=== PATIENT | female | born 1980 | race Caucasian/White ===

== ENCOUNTER 2018-02-07 14:15 | Emergency (ER) | payer SELFPAY ==
[~2018-02-07] VITALS: Ht 162.6 cm; Wt 78.9 kg
[~2018-02-07 14:15] MED LIST: DOXY100T2 PO; PANT40SU PO; RT-ALBUINH IH
--- NOTE | 2018-02-07 14:35 | ED Integumentary General ---
General Stated Complaint: ABSCESS UNDER LEFT ARM Source: patient Exam Limitations: no limitations History of Present Illness Date Seen by Provider: Feb 07, 2018 Time Seen by Provider: 14:29 Initial Comments Patient to the emergency room with complaints of abscess under left axilla. She reports that the redness and pain started 2 days ago and she squeezed on expressing purulent drainage. Denies any fevers Timing/Duration: yesterday Location: none Possible Cause: no cause identified Associated Symptoms: denies symptoms; No fever Allergies and Home Medications Allergies Coded Allergies: codeine (Verified Allergy, Unknown, 07/25/15) Home Medications Albuterol Sulfate 8.5 Gm Hfa.aer.ad, 1-2 PUFF IH PRN, (Reported) Doxycycline Hyclate 100 Mg Tablet, 100 MG PO BID Prescribed by: MAR PAK on 04/18/16 1659 Pantoprazole Sodium 40 Mg , 40 MG PO DAILY Prescribed by: RICHARD LOPEZ on 07/25/15 1733 Patient Home Medication List Home Medication List Reviewed: Yes Constitutional: see HPI; No chills, No fever EENTM: see HPI; No hearing loss, No ear pain Respiratory: see HPI; No cough, No short of breath, No wheezing Cardiovascular: see HPI; No chest pain Gastrointestinal: see HPI; No abdominal pain Genitourinary: see HPI; No dysuria, No hematuria Musculoskeletal: see HPI; No back pain Skin: see HPI, lesions Psychiatric/Neurological: See HPI; Denies Depressed Endocrine: See HPI; Denies Flushing Hematologic/Lymphatic: See HPI; Denies Blood Clots All Other Systems Reviewed Negative Unless Noted: Yes Past Gmexval-Shnyfq-Ointuj Hx Past Med/Social Hx: Reviewed Nursing Past Med/Soc Hx Patient Social History Recent Foreign Travel: No Contact w/Someone Who Travel: No Recent Hopitalizations: No Past Medical History Asthma Traumatic Brain Injury Reproductive Disorders: No Scoliosis Family Medical History Reviewed Nursing Family Hx Heart Disease, Cancer, Diabetes Physical Exam Vital Signs Vital Signs - First Documented 02/07/18 14:25 Temp 97.7 Pulse 80 Resp 18 B/P (MAP) 119/83 (95) Pulse Ox 97 Capillary Refill : General Appearance: WD/WN, no apparent distress HEENT: TMs normal, pharynx normal Neck: full range of motion, supple, normal inspection Cardiovascular: regular rate, rhythm, no edema, no gallop, no JVD, no murmur Respiratory: chest non-tender, lungs clear Gastrointestinal: normal bowel sounds, non tender Back: normal inspection, no CVA tenderness Extremities: normal range of motion, non-tender Neurologic/Psychiatric: alert, normal mood/affect, oriented x 3 Skin: normal color, warm/dry, other (abscess to the left axilla. area is indurated but there is no area that could be drained. The patient has squeezed and expressed purulent drainage prior to arrival.) Skin Problem Location: generalized, other (left axilla) Skin Problem Character: abscess Lymphatic: no adenopathy Progress/Results/Core Measures Results/Orders Vital Signs/I&O 02/07/18 14:25 Temp 97.7 Pulse 80 Resp 18 B/P (MAP) 119/83 (95) Pulse Ox 97 Departure Impression Primary Impression: Abscess of axilla, left Disposition: 01 HOME, SELF-CARE Condition: Stable/Unchanged Departure-Patient Inst. Decision time for Depature: 14:34 Referrals: MILES MURO DO (PCP/Family) Primary Care Physician Patient Instructions: ABSCESS Add. Discharge Instructions: Take medication as directed. Continue to use the warm compresses to aid with drainage. Return back to the emergency room for increased pain, fevers, redness or streaking or any other concerns as needed. Follow-up with your doctor within 1 week for recheck call today for appointment time. Scripts Sulfamethoxazole/Trimethoprim (Bactrim Ds Tablet) 1 Each Tablet 1 EACH PO BID, #14 TAB Prov: RICHARD LOPEZ APRN 02/07/18 RICHARD LOPEZ APRN Feb 07, 2018 14:34
[2018-02-07] MEDS ORDERED: SULF1TAB35 PO ×2 (14:38→14:52)
[2018-02-07 14:59] VITALS: BP 119/83
== END 2018-02-07 15:02 | disposition home or self-care (01) ==
LOC: EDUNIT# 14:15 → ER 14:19
DX: L02.412 Cutaneous abscess of left axilla (principal); J45.909 Unspecified asthma, uncomplicated; Z87.828 Personal history of other (healed) physical injury and trauma; Z87.39 Personal history of other diseases of the musculoskeletal system and connective tissue; Z88.5 Allergy status to narcotic agent
CPT/HCPCS: 99282

== ENCOUNTER 2019-05-06 08:13 | Emergency (ER) | payer SELFPAY ==
[~2019-05-06] VITALS: Ht 165 cm; Wt 73.9 kg
[~2019-05-06 08:13] MED LIST changes: +SULF1TAB35 PO
[2019-05-06] MEDS ORDERED: LACTATED RINGERS 1,000 ML IV ONE (08:49)
[2019-05-06] MEDS ORDERED: ONDANSETRON 4 MG/2 ML (SDV) Z0FRAN IVP ONE (09:00)
[2019-05-06 09:27] LABS: BILIRUBIN,URINE 1+ (NEGATIVE); CLARITY,URINE VERY CLOUDY; COLOR,URINE YELLOW; GLUCOSE, URINE (UA) NEGATIVE (NEGATIVE); KETONES,URINE NEGATIVE (NEGATIVE); LEUKOCYTE ESTERASE ,URINE 2+ (NEGATIVE); NITRITE,URINE POSITIVE (NEGATIVE); PH,URINE 5 (5-9); PROTEIN,URINE 2+ (NEGATIVE); UROBILINOGEN,URINE 1 MG/DL (NORMAL)
[2019-05-06 09:37] LABS: CALCIUM OXALATE CRYSTALS,UR LARGE /LPF
[2019-05-06 09:38] LABS: BACTERIA,URINE LARGE /HPF; SQUAMOUS EPITHELIAL CELL,UR 25-50 /HPF
[2019-05-06 09:42] LABS: AMPHETAMINE SCREEN, URINE NEGATIVE (NEGATIVE); BARBITURATE SCREEN URINE NEGATIVE (NEGATIVE); BENZODIAZEPINES SCREEN URINE NEGATIVE (NEGATIVE); CANNABINOID SCREEN, URINE POSITIVE (NEGATIVE); COCAINE SCREEN URINE NEGATIVE (NEGATIVE); METHADONE STAT NEGATIVE (NEGATIVE); METHAMPHETAMINE SCREEN URINE S NEGATIVE (NEGATIVE); OPIATE SCREEN URINE NEGATIVE (NEGATIVE); OXYCODONE STAT NEGATIVE (NEGATIVE); PROPOXYPHENE STAT NEGATIVE (NEGATIVE); TRICYCLIC ANTIDEPRESSANTS SCRE NEGATIVE (NEGATIVE)
[2019-05-06 10:00] LABS: BASOPHILS % (AUTO) 0 % (0-10); EOSINOPHILS # (AUTO) 0.1 10^3/uL (0.0-0.3); EOSINOPHILS % (AUTO) 2 % (0-10); HEMATOCRIT 41 % (35-52); HEMOGLOBIN 13.7 G/DL (11.5-16.0); LYMPHOCYTES # (AUTO) 1.9 X 10^3 (1.0-4.0); LYMPHOCYTES % (AUTO) 22 % (12-44); MEAN CORPUSCULAR HEMOGLOBIN 30 PG (25-34); MEAN CORPUSCULAR HGB CONC 33 G/DL (32-36); MEAN CORPUSCULAR VOLUME 90 FL (80-99); MEAN PLATELET VOLUME 10.5 FL (7.4-10.4); MONOCYTES # (AUTO) 0.8 X 10^3 (0.0-1.0); MONOCYTES % (AUTO) 9 % (0-12); NEUTROPHILS # (AUTO) 5.9 X 10^3 (1.8-7.8); NEUTROPHILS % (AUTO) 67 % (42-75); PLATELET COUNT 261 10^3/uL (130-400); RED CELL DISTRIBUTION WIDTH 13.2 % (10.0-14.5); WHITE BLOOD COUNT 8.8 10^3/uL (4.3-11.0)
[2019-05-06 10:21] LABS: ALANINE AMINOTRANSFERASE 16 U/L (0-55); ALBUMIN 4.1 GM/DL (3.2-4.5); ALKALINE PHOSPHATASE 84 U/L (40-136); AMYLASE 18 U/L (25-125); BILIRUBIN,TOTAL 0.4 MG/DL (0.1-1.0); BUN/CREATININE RATIO 15; CALCIUM 8.9 MG/DL (8.5-10.1); CARBON DIOXIDE 21 MMOL/L (21-32); CHLORIDE 108 MMOL/L (98-107); CREATININE SERUM 0.81 MG/DL (0.60-1.30); GFR ESTIMATED > 60; GLUCOSE 78 MG/DL (70-105); LIPASE 21 U/L (8-78); POTASSIUM 3.6 MMOL/L (3.6-5.0); SODIUM 137 MMOL/L (135-145)
[2019-05-06] MEDS ORDERED: CATHETER FLUSH 10 ML SYR IV PRN (10:30)
[2019-05-06] MEDS ORDERED: NS 100 ML (IVPB) BAG IV ONE (10:30)
[2019-05-06] MEDS ORDERED: IOHEXOL 350 MG/ML 100 ML (OMNIPAQUE 350) VIAL IV ONE (10:30)
[2019-05-06] MEDS ORDERED: HOLD METFORMIN - RECEIVED CONTRAST 20 ML VIAL IV SCH (10:30)
--- NOTE | 2019-05-06 11:03 | NUR ---
received RN report from jessica at this time.
[2019-05-06] MEDS ORDERED: cefTRIAXone FOR IV USE 1,000 MG in WATER (STERILE) FOR INJECTION 10 ML IV ONE (11:15)
--- NOTE | 2019-05-06 11:43 | Diagnostic Imaging Report ---
PROCEDURE: CT abdomen and pelvis with contrast, rule out appendicitis. TECHNIQUE: Multiple contiguous axial images were obtained through the abdomen and pelvis after the administration of intravenous contrast. INDICATION: Appendicitis. FINDINGS: No comparison available. Limited views of lower thorax reveal mild atelectasis dependently. There is a small cyst or hemangioma in hepatic segment , too small to fully characterize. Liver is otherwise normal. Gallbladder is normal. No biliary ductal dilation. Portal vein is patent. Pancreas, spleen and adrenal glands are normal. Kidneys enhance symmetrically without focal lesion. No hydronephrosis. Urinary bladder is normal. Uterus and adnexa are normal for age. There are no dilated loops of large or small bowel. The appendix is normal. No free fluid or air. No abdominal or pelvic lymphadenopathy. Abdominal aorta is normal in caliber. There are no suspicious osseous lesions. IMPRESSION: 1. No acute abnormality in the abdomen or pelvis, normal appendix. Dictated by: Dictated on workstation # [id number]
--- NOTE | 2019-05-06 11:48 | Diagnostic Imaging Report ---
EXAMINATION: Abdominal series and chest radiograph HISTORY: Belching and diarrhea. FINDINGS: Comparison is to a CT from same day. Lungs are clear without edema or pneumonia. No pleural effusion or pneumothorax. Heart size is normal. Bowel gas pattern is normal. No free air is seen. Excreted contrast is present in the kidneys and urinary bladder. IMPRESSION: 1. Clear lungs. 2. Normal bowel gas pattern. Dictated by: Dictated on workstation # [id number]
[2019-05-06] MEDS ORDERED: ONDA4TAB11 PO (11:58)
[2019-05-06] MEDS ORDERED: CIPR-225 PO (11:58)
[2019-05-06] MEDS ORDERED: LACT1CAP8 PO (11:58)
[2019-05-06] MEDS ORDERED: HYOS0.1283 SL (11:58)
[2019-05-06 11:59] VITALS: BP 110/78
--- NOTE | 2019-05-06 11:59 | ED Abdominal Pain ---
General Chief Complaint: Abdominal/GI Problems Stated Complaint: DIARRHEA Nursing Triage Note: PMH OF H PYL[facility]I STARTED WITH BELCHING AND DIARRHEA YESTERDAY. Sepsis Screen: No Definite Risk Source of Information: Patient History of Present Illness Date Seen by Provider: May 06, 2019 Time Seen by Provider: 08:40 Initial Comments PT ARRIVES VIA POV FROM HOME STATES THAT SHE BEGAN HAVING A FEVER AND DIARRHEA 5 DAYS AGO LAST TIME SHE WAS AWARE OF FEVER WAS 3 DAYS AGO AND WAS 101 AT THAT TIME DIARRHEA GOT BETTER, BUT THEN STARTED AGAIN LAST NIGHT--STATES SHE HAS HAD >10 <20 STOOLS SINCE LAST PM. NO BLACK/BLOODY/TARRY STOOLS C/O NAUSEA, NO VOMITING, STATES SHE HAS BEEN "BELCHING SULFA" STATES SHE HASN'T BEEN EATING RIGHT FOR THE LAST FEW DAYS DUE TO SYMPTOMS C/O EPIGASTRIC PAIN STATES "I GET IT ALOT-I HAVE H.PYLORI" NO KNOWN SICK CONTACTS OR SUSPICIOUS FOODS PCP: NONE Allergies and Home Medications Allergies Coded Allergies: codeine (Verified Allergy, Unknown, 07/25/15) Home Medications Albuterol Sulfate 8.5 Gm Hfa.aer.ad, 1-2 PUFF IH PRN, (Reported) Ciprofloxacin HCl 500 Mg Tablet, 500 MG PO BID Prescribed by: CARI MCFARLAND on 05/06/19 1158 Doxycycline Hyclate 100 Mg Tablet, 100 MG PO BID Prescribed by: MAR PAK on 04/18/16 1659 Hyoscyamine Sulfate 0.125 Mg Tab.subl, 1-2 TAB SL Q4H Prescribed by: CARI MCFARLAND on 05/06/19 1158 Lactobacillus Acidophilus 1 Each Capsule, 2 EACH PO QID Prescribed by: CARI MCFARLAND on 05/06/19 1158 Ondansetron 4 Mg Tab.rapdis, 4 MG PO Q4H Prescribed by: CARI MCFARLAND on 05/06/19 1158 Pantoprazole Sodium 40 Mg Granpkt.dr, 40 MG PO DAILY Prescribed by: RICHARD LOPEZ on 07/25/15 1733 Sulfamethoxazole/Trimethoprim 1 Each Tablet, 1 EACH PO BID Prescribed by: RICHARD LOPEZ on 02/07/18 2236 Sulfamethoxazole/Trimethoprim 1 Each Tablet, 1 EACH PO BID Prescribed by: RICHARD LOPEZ on 02/10/18 1024 Sulfamethoxazole/Trimethoprim 1 Each Tablet, 1 EACH PO BID Prescribed by: RICHARD LOPEZ on 02/07/18 8422 Patient Home Medication List Home Medication List Reviewed: Yes Review of Systems Review of Systems Constitutional: see HPI, fever Respiratory: No Symptoms Reported Cardiovascular: No Symptoms Reported Gastrointestinal: See HPI, Abdominal Pain, Diarrhea, Nausea, Poor Appetite; Denies Vomiting Genitourinary: No Symptoms Reported Musculoskeletal: no symptoms reported Skin: no symptoms reported Psychiatric/Neurological: No Symptoms Reported Endocrine: No Symptoms Reported Hematologic/Lymphatic: No Symptoms Reported Past Acifvgo-Xprizr-Ayfwlw Hx Past Med/Social Hx: Reviewed and Corrections made Patient Social History Alcohol Use: Rarely Uses Recreational Drug Use: No Smoking Status: Current Everyday Smoker (1 PPD) Type Used: Cigarettes 2nd Hand Smoke Exposure: Yes Recent Foreign Travel: No Contact w/Someone Who Travel: No Recent Infectious Disease Expo: No Recent Hopitalizations: No Past Medical History Surgeries: Yes (LEEP) Respiratory: Yes (tobaccoism) Asthma Cardiac: No Neurological: Yes Concussion Reproductive Disorders: Yes (CERVICAL DYSPLASIA--S/P LEEP) Gastrointestinal: Yes (GASTRITIS; H.PYLORI, PER PT) Musculoskeletal: Yes Scoliosis Endocrine: No HEENT: No Cancer: No Psychosocial: No Integumentary: No Blood Disorders: No Family Medical History Heart Disease, Cancer, Diabetes Physical Exam Vital Signs Vital Signs - First Documented 05/06/19 08:18 Temp 35.7 Pulse 63 Resp 18 B/P (MAP) 112/73 (86) Pulse Ox 98 O2 Delivery Room Air Capillary Refill : Less Than 3 Seconds Height/Weight/BMI Height: 5'4.00" Weight: 174lbs. 0oz. [id number]; 27.00 BMI Method:Stated General Appearance: WD/WN, no apparent distress HEENT: PERRL/EOMI, normal ENT inspection, other (POOR DENTITION) Respiratory: normal breath sounds, no respiratory distress, no accessory muscle use Cardiovascular: regular rate, rhythm, no murmur Gastrointestinal: normal bowel sounds, soft, no organomegaly, no pulsatile mass; No distended, No guarding, No rebound; tenderness (EPIGASTRIC); No hernia, No mass Extremities: normal inspection Back: normal inspection, CVA tenderness (R) Neurologic/Psychiatric: motor boss II-XII nml as tested, no motor/sensory deficits, alert, normal mood/affect, oriented x 3 Skin: normal color, warm/dry Progress/Results/Core Measures Results/Orders Lab Results Laboratory Tests Test 05/06/19 09:20 05/06/19 09:28 Range/Units Urine Color YELLOW Urine Clarity VERY CLOUDY H Urine pH 5 5-9 Urine Specific Solomon 1.025 H 1.016-1.022 Urine Protein 2+ H NEGATIVE Urine Glucose (UA) NEGATIVE NEGATIVE Urine Ketones NEGATIVE NEGATIVE Urine Nitrite POSITIVE H NEGATIVE Urine Bilirubin 1+ H NEGATIVE Urine Urobilinogen 1 NORMAL MG/DL Urine Leukocyte Esterase 2+ H NEGATIVE Urine RBC (Auto) 5+ H NEGATIVE Urine RBC NONE /HPF Urine WBC 5-10 H /HPF Urine Squamous Epithelial Cells 25-50 H /HPF Urine Crystals PRESENT H /LPF Urine Calcium Oxalate Crystals LARGE H /LPF Urine Bacteria LARGE H /HPF Urine Casts NONE /LPF Urine Mucus NEGATIVE /LPF Urine Culture Indicated YES Urine Opiates Screen NEGATIVE NEGATIVE Urine Oxycodone Screen NEGATIVE NEGATIVE Urine Methadone Screen NEGATIVE NEGATIVE Urine Propoxyphene Screen NEGATIVE NEGATIVE Urine Barbiturates Screen NEGATIVE NEGATIVE Ur Tricyclic Antidepressants Screen NEGATIVE NEGATIVE Urine Phencyclidine Screen NEGATIVE NEGATIVE Urine Amphetamines Screen NEGATIVE NEGATIVE Urine Methamphetamines Screen NEGATIVE NEGATIVE Urine Benzodiazepines Screen NEGATIVE NEGATIVE Urine Cocaine Screen NEGATIVE NEGATIVE Urine Cannabinoids Screen POSITIVE H NEGATIVE White Blood Count 8.8 4.3-11.0 10^3/uL Red Blood Count 4.60 4.35-5.85 10^6/uL Hemoglobin 13.7 11.5-16.0 G/DL Hematocrit 41 35-52 % Mean Corpuscular Volume 90 80-99 FL Mean Corpuscular Hemoglobin 30 25-34 PG Mean Corpuscular Hemoglobin Concent 33 32-36 G/DL Red Cell Distribution Width 13.2 10.0-14.5 % Platelet Count 261 130-400 10^3/uL Mean Platelet Volume 10.5 H 7.4-10.4 FL Neutrophils (%) (Auto) 67 42-75 % Lymphocytes (%) (Auto) 22 12-44 % Monocytes (%) (Auto) 9 0-12 % Eosinophils (%) (Auto) 2 0-10 % Basophils (%) (Auto) 0 0-10 % Neutrophils # (Auto) 5.9 1.8-7.8 X 10^3 Lymphocytes # (Auto) 1.9 1.0-4.0 X 10^3 Monocytes # (Auto) 0.8 0.0-1.0 X 10^3 Eosinophils # (Auto) 0.1 0.0-0.3 10^3/uL Basophils # (Auto) 0.0 0.0-0.1 10^3/uL Sodium Level 137 135-145 MMOL/L Potassium Level 3.6 3.6-5.0 MMOL/L Chloride Level 108 H 98-107 MMOL/L Carbon Dioxide Level 21 21-32 MMOL/L Anion Gap 8 5-14 MMOL/L Blood Urea Nitrogen 12 7-18 MG/DL Creatinine 0.81 0.60-1.30 MG/DL Estimat Glomerular Filtration Rate > 60 BUN/Creatinine Ratio 15 Glucose Level 78 70-105 MG/DL Calcium Level 8.9 8.5-10.1 MG/DL Corrected Calcium 8.8 8.5-10.1 MG/DL Magnesium Level 2.0 1.6-2.4 MG/DL Total Bilirubin 0.4 0.1-1.0 MG/DL Aspartate Amino Transf (AST/SGOT) 15 5-34 U/L Alanine Aminotransferase (ALT/SGPT) 16 0-55 U/L Alkaline Phosphatase 84 40-136 U/L Total Protein 7.0 6.4-8.2 GM/DL Albumin 4.1 3.2-4.5 GM/DL Amylase Level 18 L 25-125 U/L Lipase 21 8-78 U/L Serum Test, Qualitative NEGATIVE NEGATIVE My Orders Orders - CARI MCFARLAND DO Ed Iv/Invasive Line Start (05/06/19 08:49) Urine Bedside (05/06/19 08:49) Amylase (05/06/19 08:49) Cbc With Automated Diff (05/06/19 08:49) Comprehensive Metabolic Panel (05/06/19 08:49) Drug Screen Stat (Urine) (05/06/19 08:49) Lipase (05/06/19 08:49) Magnesium (05/06/19 08:49) Ua Culture If Indicated (05/06/19 08:49) Ondansetron Injection (Zofran Injectio (05/06/19 09:00) Ed Iv/Invasive Line Start (05/06/19 08:49) Lactated Ringers (Lr 1000 Ml Iv Solution (05/06/19 08:49) Hcg,Qualitative Serum (05/06/19 09:32) Urine Culture (05/06/19 09:20) Ct Abd/Pelv W (Appendicitis) (05/06/19 10:06) Acute Abd Series (05/06/19 10:06) Iohexol Injection (Omnipaque 350 Mg/Ml 1 (05/06/19 10:30) Received Contrast (Hold Metformin- Contr (05/06/19 10:30) Sodium Chloride Flush (Catheter Flush Sy (05/06/19 10:30) Ns (Ivpb) (Sodium Chloride 0.9% Ivpb Bag (05/06/19 10:30) Ceftriaxone For Iv Use (Rocephin For I (05/06/19 11:15) Medications Given in ED Current Medications Medications Dose Ordered Sig/Mark Route Start Time Stop Time Status Last Admin Dose Admin Ceftriaxone Sodium 1000 mg/ Sterile Water 10 ml @ 200 mls/hr ONCE ONCE IV 05/06/19 11:15 05/06/19 11:17 DC 05/06/19 11:40 200 MLS/HR Iohexol 100 ml ONCE ONCE IV 05/06/19 10:30 05/06/19 10:31 DC 05/06/19 11:30 92 ML Lactated Ringer's 1,000 ml @ 0 mls/hr Q0M ONCE IV 05/06/19 08:49 05/06/19 08:51 DC 05/06/19 09:28 1,000 MLS/HR Ondansetron HCl 4 mg ONCE ONCE IVP 05/06/19 09:00 05/06/19 09:01 DC 05/06/19 09:08 4 MG Sodium Chloride 10 ml NEEDED PRN IV 05/06/19 10:30 05/06/19 11:30 10 ML Sodium Chloride 100 ml ONCE ONCE IV 05/06/19 10:30 05/06/19 10:31 DC 05/06/19 11:30 80 ML Vital Signs/I&O 05/06/19 05/06/19 08:18 11:59 Temp 35.7 Pulse 63 57 Resp 18 20 B/P (MAP) 112/73 (86) 110/78 Pulse Ox 98 100 O2 Delivery Room Air Blood Pressure Mean: 86 Progress Progress Note : Progress Note NAUSEA IMPROVED WITH ZOFRAN UNEVENTFUL ER STAY NO DIARRHEA DURING ER STAY Diagnostic Imaging Comments ABDOMEN XRAYS--NO ACUTE PROCESS CT ABDOMEN/PELVIS--NO ACUTE PROCESS PER RADIOLOGIST REPORTS AT 1150 Reviewed: Reviewed by Me Departure Impression Primary Impression: Urinary tract infection Additional Impression: Diarrhea Disposition: 01 HOME, SELF-CARE Condition: Improved Departure-Patient Inst. Referrals: NO,LOCAL PHYSICIAN (PCP/Family) Primary Care Physician Patient Instructions: [id number], Urinary Tract Infection, Adult (DC) Add. Discharge Instructions: CLEAR LIQUIDS--WATER, BROTH, JELLO, GATORADE BRATS DIET--BANANAS, RICE, APPLESAUCE, TOAST, SALTINES TYLENOL AND MOTRIN NEEDED FOR PAIN OR FEVER CONTINUE YOUR PROTONIX DAILY FOLLOW UP WITH YOUR DR IN 3-4 DAYS FOR FURTHER CARE All discharge instructions reviewed with patient and/or family. Voiced understanding. Scripts Ondansetron (Ondansetron Odt) 4 Mg Tab.rapdis 4 MG PO Q4H for Nausea/Vomiting, #10 TAB Prov: CARI MCFARLAND DO 05/06/19 Hyoscyamine Sulfate (Levsin-Sl) 0.125 Mg Tab.subl 1-2 TAB SL Q4H for Abdominal Pain, #15 TAB Prov: CARI MCFARLAND DO 05/06/19 Lactobacillus Acidophilus (Acidophilus) 1 Each Capsule 2 EACH PO QID, #80 CAP Prov: CARI MCFARLAND DO 05/06/19 Ciprofloxacin HCl (Cipro) 500 Mg Tablet 500 MG PO BID, #20 TAB Prov: CARI MCFARLAND DO 05/06/19 CARI MCFARLAND DO May 06, 2019 11:58
== END 2019-05-06 12:29 | disposition home or self-care (01) ==
LOC: EDUNIT# 08:13 → ER 08:15
DX: N39.0 Urinary tract infection, site not specified (principal); R19.7 Diarrhea, unspecified; J45.909 Unspecified asthma, uncomplicated; F17.210 Nicotine dependence, cigarettes, uncomplicated; Z88.5 Allergy status to narcotic agent; Z87.828 Personal history of other (healed) physical injury and trauma; Z82.49 Family history of ischemic heart disease and other diseases of the circulatory system
CPT/HCPCS: 36415; 74022; 74177; 80053; 80306; 81000; 82150; 83690; 83735; 84703; 85025; 87077; 87088; 87186

== ENCOUNTER 2019-11-14 17:52 | Emergency (ER) | payer SELFPAY ==
[~2019-11-14] VITALS: Ht 162 cm; Wt 75.0 kg
[~2019-11-14 17:52] MED LIST changes: +CIPR-225 PO; +HYOS0.1283 SL; +LACT1CAP8 PO; +ONDA4TAB11 PO
[2019-11-14 18:26] LABS: CLARITY,URINE SL CLOUDY; COLOR,URINE YELLOW; GLUCOSE, URINE (UA) NEGATIVE (NEGATIVE); KETONES,URINE NEGATIVE (NEGATIVE); LEUKOCYTE ESTERASE ,URINE TRACE (NEGATIVE); NITRITE,URINE NEGATIVE (NEGATIVE); PH,URINE 5.5 (5-9); PROTEIN,URINE TRACE (NEGATIVE)
[2019-11-14 18:36] LABS: BASOPHILS % (AUTO) 0 % (0-10); EOSINOPHILS # (AUTO) 0.1 10^3/uL (0.0-0.3); EOSINOPHILS % (AUTO) 1 % (0-10); HEMATOCRIT 42 % (35-52); HEMOGLOBIN 14.3 G/DL (11.5-16.0); LYMPHOCYTES # (AUTO) 2.2 X 10^3 (1.0-4.0); LYMPHOCYTES % (AUTO) 23 % (12-44); MEAN CORPUSCULAR HEMOGLOBIN 31 PG (25-34); MEAN CORPUSCULAR HGB CONC 34 G/DL (32-36); MEAN CORPUSCULAR VOLUME 90 FL (80-99); MEAN PLATELET VOLUME 10.7 FL (7.4-10.4); MONOCYTES # (AUTO) 0.7 X 10^3 (0.0-1.0); MONOCYTES % (AUTO) 7 % (0-12); NEUTROPHILS # (AUTO) 6.4 X 10^3 (1.8-7.8); NEUTROPHILS % (AUTO) 68 % (42-75); PLATELET COUNT 279 10^3/uL (130-400); RED CELL DISTRIBUTION WIDTH 13.3 % (10.0-14.5); WHITE BLOOD COUNT 9.5 10^3/uL (4.3-11.0)
--- NOTE | 2019-11-14 18:38 | ED Abdominal Pain ---
General Chief Complaint: Abdominal/GI Problems Stated Complaint: PELVIC PAIN Nursing Triage Note: Pt c/o severe pelvic pain that began suddenly today at 1100. Pt describes pain as pressure, cramping, stabbing. Pt reports minimal vaginal bleeding. Pt reports history of cervical cancer. Sepsis Screen: No Definite Risk Source of Information: Patient Exam Limitations: No Limitations History of Present Illness Date Seen by Provider: Nov 14, 2019 Time Seen by Provider: 18:37 Initial Comments To ER with sudden onset midline suprapubic abdominal pain today at 11 AM while she was at work. No fever no chills. Timing/Duration: 4-6 Hours Severity/Quality: Moderate Location: Suprapubic Radiation: No Radiation Activities at Onset: None Allergies and Home Medications Allergies Coded Allergies: codeine (Verified Allergy, Unknown, 07/25/15) Home Medications Albuterol Sulfate 8.5 Gm Hfa.aer.ad, 1-2 PUFF IH PRN, (Reported) Ciprofloxacin HCl 500 Mg Tablet, 500 MG PO BID Prescribed by: CARI MCFARLAND on 05/06/19 1158 Doxycycline Hyclate 100 Mg Tablet, 100 MG PO BID Prescribed by: MAR PAK on 04/18/16 1659 Hyoscyamine Sulfate 0.125 Mg Tab.subl, 1-2 TAB SL Q4H Prescribed by: CARI MCFARLAND on 05/06/19 1158 Lactobacillus Acidophilus 1 Each Capsule, 2 EACH PO QID Prescribed by: CARI MCFARLAND on 05/06/19 1158 Ondansetron 4 Mg Tab.rapdis, 4 MG PO Q4H Prescribed by: CARI MCFARLAND on 05/06/19 1158 Pantoprazole Sodium 40 Mg Granpkt.dr, 40 MG PO DAILY Prescribed by: RICHARD LOPEZ on 07/25/15 1733 Sulfamethoxazole/Trimethoprim 1 Each Tablet, 1 EACH PO BID Prescribed by: RICHARD LOPEZ on 02/07/18 2236 Sulfamethoxazole/Trimethoprim 1 Each Tablet, 1 EACH PO BID Prescribed by: RICHARD LOPEZ on 02/10/18 1024 Sulfamethoxazole/Trimethoprim 1 Each Tablet, 1 EACH PO BID Prescribed by: RICHARD LOPEZ on 02/07/18 1452 Patient Home Medication List Home Medication List Reviewed: Yes Review of Systems Review of Systems Constitutional: see HPI EENTM: No Symptoms Reported Respiratory: No Symptoms Reported Cardiovascular: No Symptoms Reported Gastrointestinal: See HPI, Abdominal Pain Genitourinary: No Symptoms Reported Musculoskeletal: no symptoms reported Skin: no symptoms reported Psychiatric/Neurological: No Symptoms Reported Endocrine: No Symptoms Reported Hematologic/Lymphatic: No Symptoms Reported Past Rffigqb-Lnifbb-Ecwulj Hx Patient Social History Alcohol Use: Denies Use Recreational Drug Use: Yes Drug of Choice: weed Smoking Status: Current Everyday Smoker Type Used: Cigarettes 2nd Hand Smoke Exposure: Yes Recent Foreign Travel: No Contact w/Someone Who Travel: No Recent Infectious Disease Expo: No Recent Hopitalizations: No Past Medical History Surgeries: Yes (LEEP) Respiratory: Yes (tobaccoism) Asthma Cardiac: No Neurological: Yes Concussion Last Menstrual Period: Oct 06, 2019 Reproductive Disorders: Yes (CERVICAL DYSPLASIA--S/P LEEP) Gastrointestinal: Yes (GASTRITIS; H.PYLORI, PER PT) Musculoskeletal: Yes Scoliosis Endocrine: No HEENT: No Cancer: No Psychosocial: No Integumentary: No Blood Disorders: No Family Medical History Heart Disease, Cancer, Diabetes Physical Exam Vital Signs Vital Signs - First Documented 11/14/19 18:07 Temp 37.0 Pulse 67 Resp 18 B/P (MAP) 112/75 (87) Pulse Ox 97 O2 Delivery Room Air Capillary Refill : Less Than 3 Seconds Height/Weight/BMI Height: 5'4.00" Weight: 174lbs. 0oz. 78.875439fn; 28.00 BMI Method:Stated General Appearance: WD/WN, no apparent distress HEENT: PERRL/EOMI, normal ENT inspection Respiratory: no respiratory distress, no accessory muscle use Gastrointestinal: normal bowel sounds, soft, tenderness (suprapubic) Extremities: normal range of motion, non-tender Progress/Results/Core Measures Results/Orders Lab Results Laboratory Tests Test 11/14/19 18:15 11/14/19 18:27 Range/Units Urine Color YELLOW Urine Clarity SL CLOUDY Urine pH 5.5 5-9 Urine Specific Tyler >=1.030 1.016-1.022 Urine Protein TRACE H NEGATIVE Urine Glucose (UA) NEGATIVE NEGATIVE Urine Ketones NEGATIVE NEGATIVE Urine Nitrite NEGATIVE NEGATIVE Urine Bilirubin 1+ H NEGATIVE Urine Urobilinogen 0.2 < = 1.0 MG/DL Urine Leukocyte Esterase TRACE H NEGATIVE Urine RBC (Auto) 3+ H NEGATIVE Urine RBC 25-50 H /HPF Urine WBC 5-10 H /HPF Urine Squamous Epithelial Cells 2-5 /HPF Urine Crystals PRESENT H /LPF Urine Amorphous Sediment FEW CLAIRE URATES H /LPF Urine Bacteria FEW H /HPF Urine Casts NONE /LPF Urine Mucus LARGE H /LPF Urine Trichomonas FEW H /HPF Urine Culture Indicated YES White Blood Count 9.5 4.3-11.0 10^3/uL Red Blood Count 4.67 4.35-5.85 10^6/uL Hemoglobin 14.3 11.5-16.0 G/DL Hematocrit 42 35-52 % Mean Corpuscular Volume 90 80-99 FL Mean Corpuscular Hemoglobin 31 25-34 PG Mean Corpuscular Hemoglobin Concent 34 32-36 G/DL Red Cell Distribution Width 13.3 10.0-14.5 % Platelet Count 279 130-400 10^3/uL Mean Platelet Volume 10.7 H 7.4-10.4 FL Neutrophils (%) (Auto) 68 42-75 % Lymphocytes (%) (Auto) 23 12-44 % Monocytes (%) (Auto) 7 0-12 % Eosinophils (%) (Auto) 1 0-10 % Basophils (%) (Auto) 0 0-10 % Neutrophils # (Auto) 6.4 1.8-7.8 X 10^3 Lymphocytes # (Auto) 2.2 1.0-4.0 X 10^3 Monocytes # (Auto) 0.7 0.0-1.0 X 10^3 Eosinophils # (Auto) 0.1 0.0-0.3 10^3/uL Basophils # (Auto) 0.0 0.0-0.1 10^3/uL Sodium Level 139 135-145 MMOL/L Potassium Level 3.7 3.6-5.0 MMOL/L Chloride Level 108 H 98-107 MMOL/L Carbon Dioxide Level 20 L 21-32 MMOL/L Anion Gap 11 5-14 MMOL/L Blood Urea Nitrogen 13 7-18 MG/DL Creatinine 0.81 0.60-1.30 MG/DL Estimat Glomerular Filtration Rate > 60 BUN/Creatinine Ratio 16 Glucose Level 90 70-105 MG/DL Calcium Level 9.1 8.5-10.1 MG/DL Serum Test, Qualitative NEGATIVE NEGATIVE My Orders Orders - RICHARD LOPEZ ANNEALER HELPER Cbc With Automated Diff (11/14/19 18:18) Ed Iv/Invasive Line Start (11/14/19 18:18) Hcg,Qualitative Serum (11/14/19 18:18) Basic Metabolic Panel (11/14/19 18:18) Ct Abdomen/Pelvis W (11/14/19 18:36) Ketorolac Injection (Toradol Injection) (11/14/19 18:45) Iohexol Injection (Omnipaque 350 Mg/Ml 1 (11/14/19 19:15) Received Contrast (Hold Metformin- Contr (11/14/19 19:15) Ns (Ivpb) (Sodium Chloride 0.9% Ivpb Bag (11/14/19 19:15) Wet Prep (11/14/19 19:33) Neisseria Gonorrhea Swab (11/14/19 19:33) Genital Culture (11/14/19 19:33) Chlamydia Trachomatis Swab (11/14/19 19:33) Azithromycin Tablet (Zithromax Tablet) (11/14/19 19:45) Ceftriaxone For Iv Use (Rocephin For I (11/14/19 19:45) Medications Given in ED Current Medications Medications Dose Ordered Sig/Mark Route Start Time Stop Time Status Last Admin Dose Admin Iohexol 100 ml ONCE ONCE IV 11/14/19 19:15 11/14/19 19:16 DC 11/14/19 19:09 94 ML Ketorolac Tromethamine 15 mg ONCE ONCE IVP 11/14/19 18:45 11/14/19 18:46 DC 11/14/19 18:44 15 MG Sodium Chloride 100 ml ONCE ONCE IV 11/14/19 19:15 11/14/19 19:16 DC 11/14/19 19:09 80 ML Vital Signs/I&O 11/14/19 11/14/19 18:07 19:30 Temp 37.0 Pulse 67 55 Resp 18 16 B/P (MAP) 112/75 (87) 105/66 (79) Pulse Ox 97 99 O2 Delivery Room Air Room Air Blood Pressure Mean: 87 Departure Communication (Admissions) 1944-feeling better at this time still a bit of pain. Hydrocodone ordered. Rocephin and Zithromax ordered. Patient is self swabbing for genital culture and Chlamydia/gonorrhea. Impression Primary Impression: Trichomoniasis Additional Impression: Pelvic pain Disposition: 01 HOME, SELF-CARE Condition: Stable Departure-Patient Inst. Decision time for Depature: 19:45 Referrals: [facility] (PCP/Family) Primary Care Physician Patient Instructions: Trichomoniasis (DC), Acute Pelvic Pain (DC) Add. Discharge Instructions: 1. Tylenol and Motrin for pain control 2. Antibiotics as directed 3. Follow-up with your doctor next week. The cultures from the genitals will be back in about 1 week All discharge instructions reviewed with patient and/or family. Voiced understanding. Scripts Metronidazole (Metronidazole) 500 Mg Tablet 2000 MG PO ONCE, #4 TAB 0 Refills Prov: RICHARD LOPEZ APRN 11/14/19 RICHARD LOPEZ APRN Nov 14, 2019 18:38
[2019-11-14 18:43] LABS: RBC,URINE 25-50 /HPF
[2019-11-14] MEDS ORDERED: KETOROLAC 30 MG/ML VIAL IVP ONE (18:45)
[2019-11-14 18:46] LABS: BACTERIA,URINE FEW /HPF
[2019-11-14 18:47] LABS: AMORPHOUS SEDIMENT,UR FEW AMOR URATES /LPF
[2019-11-14 18:48] LABS: BILIRUBIN,URINE 1+ (NEGATIVE); TRICHOMONAS,URINE FEW /HPF
--- NOTE | 2019-11-14 18:50 | NUR ---
report given to LB Escamilla
[2019-11-14 18:51] LABS: BUN/CREATININE RATIO 16; CALCIUM 9.1 MG/DL (8.5-10.1); CARBON DIOXIDE 20 MMOL/L (21-32); CHLORIDE 108 MMOL/L (98-107); CREATININE SERUM 0.81 MG/DL (0.60-1.30); GFR ESTIMATED > 60; GLUCOSE 90 MG/DL (70-105); POTASSIUM 3.7 MMOL/L (3.6-5.0); SODIUM 139 MMOL/L (135-145)
[2019-11-14] MEDS ORDERED: IOHEXOL 350 MG/ML 100 ML (OMNIPAQUE 350) VIAL IV ONE (19:15)
[2019-11-14] MEDS ORDERED: HOLD METFORMIN - RECEIVED CONTRAST 20 ML VIAL IV SCH (19:15)
[2019-11-14] MEDS ORDERED: NS 100 ML (IVPB) BAG IV ONE (19:15)
[2019-11-14 19:30] VITALS: BP 105/66
--- NOTE | 2019-11-14 19:36 | Diagnostic Imaging Report ---
PROCEDURE: CT abdomen and pelvis with contrast. TECHNIQUE: Multiple contiguous axial images were obtained through the abdomen and pelvis after administration of intravenous contrast. Auto Exposure Controls were utilized during the CT exam to meet ALARA standards for radiation dose reduction. INDICATION: Pelvic pain and vaginal bleeding. Comparison is made to the prior study from 05/06/2019. FINDINGS: The visualized lung bases demonstrate no evidence of infiltrate or an effusion. Liver demonstrates no evidence of a focal intrahepatic abnormality. The gallbladder is nondistended without radiodense gallstones or findings of biliary dilatation. Pancreas demonstrates no focal abnormality. The spleen is normal in size. There is no adrenal mass. The kidneys enhance normally and appear nonobstructed. Stomach unremarkable. There are no findings of abnormal small bowel dilation. There is no abnormal small bowel thickening. The appendix is normal. There is moderate stool within the colon without evidence of abnormal colonic thickening or pericolonic fat stranding. Urinary bladder is unremarkable. Uterus appears normal in size. Ovaries demonstrate no focal abnormality and are not significantly changed in size from previous exam. There is no free fluid evident within the pelvis. No pathologic adenopathy evident. The aorta is normal in caliber. There is no acute or suspicious osseous abnormality. IMPRESSION: 1. No CT evidence of an acute inflammatory or obstructive process within the abdomen or pelvis. 2. No findings for free fluid 3. Unremarkable CT appearance of the uterus and ovaries. Dictated by: Dictated on workstation # [id number]
[2019-11-14] MEDS ORDERED: HYDROcodone/APAP 5 MG/325 MG (LORTAB) TAB PO ONE (19:45)
[2019-11-14] MEDS ORDERED: cefTRIAXone FOR IV USE 1,000 MG in WATER (STERILE) FOR INJECTION 10 ML IV ONE (19:45)
[2019-11-14] MEDS ORDERED: AZITHROMYCIN 250 MG TAB (ZITHROMAX) PO SCH (19:45)
[2019-11-14] MEDS ORDERED: METR-145 PO (19:48)
[2019-11-14 20:05] VITALS: BP 108/71
--- OUTSIDE RECORDS SUMMARY | 2019-11-14 21:09 | XMS REPORT ---
Author Author [employer] Organization [employer] Address [address] [place] [address] Care Team Providers Care Data Architect Name Role Phone UNASSIGNED, ED PHYSICIAN Unavailable Unavailable VIETH VELOZ Unavailable MILES MURO Unavailable No PCP, Pt States Unavailable IVONE ESCOBAR Unavailable Unavailable IVETH VELOZ MD Unavailable Unavailable Unavailable Unavailable RAMIRO CATHERINE Unavailable Unavailable ANA MARIA ARECHIGA Unavailable Unavailable Allergies Normalized Allergy Reported Date of Reaction(s) Care Provider Facility Allergy Type classification allergen Allergy Onset Drug (1 Unclassified No Known no information no name Not A vailable source.) Allergies (37139) DA (3 Unclassified NO KNOWN DRUG 09-19-2016 - no information IVETH Not Available sources.) ALLERGIES MD ROSELIA ([id number]) Medications No Information Problems No Information Procedures The data below is from unstructured sources Procedure List No procedures record ed. Procedure Coding System Code Date Office Visit, Est Pt., Level 3 CPT-4 28049 May 30, 2015 Procedure Coding System Code Date Office Visit, Est Pt., Level 3 CPT-4 45997 May 30, 2015 Immunizations The data below is from unstructured sources Immunizations Patient Unit Number: [id number] Immunizations No immunizations rec orded. Results Test Name Value Interpretation Reference Range Date Time Fa cility (Normalized) (Normalized) (Medline Reference) No panel information on 2019-01-26 Bacteria SEE NOTE (no code) [facility] cx Nom (Genital [facility] specimen) (30860) Clinical [id number] (N) [facility] information [place] [facility] (43798) COMMENT no information (no code) [facility] (85327) Veneer Sorter Cyto no information (N) [facility] th stain Nom [facility] (Cvx/Vag) [ID] [facility] ([id number]) Date of previous LEEP 2001 (N) [facility] biopsy Center [facility] (57647) Date of previous 2105 (N) [facility] PAP smear [facility] (73687) HPV E6+E7 mRNA Not Detected (N) Count includes the [facility] DEVENDRA+probe Ql [facility] (Cvx) [facility] (10158) Last menstrual 01/13/19 (N) Count includes the [facility] period start [facility] (24726) Microscopic no information (N) Count includes the [facility] observation [facility] Nom (Cvx) [facility] (40725) Specimen source Cervix (N) [facility] Cyto stain Nom [facility] (Cvx/Vag) [facility] (91987) Statement of no information (N) Count includes the [facility] adequacy Cyto [place] [facility] (Cvx/Vag) [facility] [Interp] (54742) No panel information on 2019-01-23 Albumin 4.2 g/dL (N) 3.4 - 5.4 g/dL [facility] [Mass/Vol] [facility] (76927) Albumin/Globulin 1.6 {ratio} (N) 1 - 2.5 {ratio} Critical access hospital [Mass ratio] [facility] (27264) ALP [Catalytic 85 U/L (N) 44 - 147 U/L [facility] activity/Vol] [facility] (08027) ALT [Catalytic 8 U/L (N) 4 - 40 U/L [facility] ealt activity/Vol] [facility] (24645) AST [Catalytic 10 U/L (N) 10 - 34 U/L [facility] activity/Vol] [facility] (94032) Basophils (Bld) 0.07 10*3/uL (N) 0 - 0.3 10*3/uL Critical access hospital [#/Vol] [facility] (08557) Basophils/100 0.8 % (N) 0.5 - 1 % [facility] WBC (Bld) [facility] (00373) Bilirubin 0.2 mg/dL (N) 0.1 - 1.2 mg/dL [facility] [Mass/Vol] [facility] (95892) Calcium 9.5 mg/dL (N) 8.5 - 10.2 mg/dL [facility] [Mass/Vol] [facility] (33394) Chloride 110 mmol/L (N) 95 - 106 mmol/L [facility] [Moles/Vol] [facility] (07833) Cholesterol 194 mg/dL (N) 180 - 200 mg/dL [facility] [Mass/Vol] [facility] (76729) Cholesterol in 32 mg/dL (L) Count includes the [facility] HDL [Mass/Vol] [facility] (38662) Cholesterol in 0 mg/dL (no code) 0 - 100 mg/dL [facility] LDL [Mass/Vol] [facility] (10479) Cholesterol non 162 mg/dL (H) [facility] HDL [Mass/Vol] [facility] (69146) Cholesterol.tota 6.1 {ratio} (H) [facility]/Cholesterol in [facility] HDL [Mass ratio] [facility] (54494) CO2 [Moles/Vol] 25 mmol/L (N) 23 - 29 mmol/L [facility] (76728) Creatinine 0.85 mg/dL (N) [facility] h [Mass/Vol] [facility] (52862) Eosinophils 0.183 10*3/uL (N) 0.05 - 0.5 [facility] alth (Bld) [#/Vol] 10*3/uL [facility] (58828) Eosinophils/100 2.1 % (N) 1 - 4 % [facility] WBC (Bld) [facility] (82672) Erythrocyte 13.1 % (N) 11.6 - 14.6 % [facility] distribution [facility] width (RBC) [facility] [Ratio] (02488) GFR/1.73 sq M 101 (N) 90 - 120 [facility] predicted among mL/min/{1.73_m2} mL/min/{1.73_m2} [facility] MDRD [facility] (S/P/Bld) [Vol (05406) rate/Area] GFR/1.73 sq 87 (N) 90 - 120 [facility] th M.predicted MDRD mL/min/{1.73_m2} mL/min/{1.73_m2} [facility] (S/P/Bld) [Vol [facility] rate/Area] (58666) Globulin (S) 2.7 g/dL (N) 2 - 3.5 g/dL [facility] ealth [Mass/Vol] [facility] (75867) Glucose 80 mg/dL (N) 60 - 125 mg/dL [facility] [Mass/Vol] [facility] (33495) Hematocrit (Bld) 42.6 % (N) 36.1 - 50.3 % [facility] [[facility] (10143) Hemoglobin (Bld) 13.7 g/dL (N) 12.1 - 17.2 g/dL [facility] [Mass/Vol] [facility] (08468) Lymphocytes 2.619 10*3/uL (N) 0.9 - 2.9 [facility] alth (Bld) [#/Vol] 10*3/uL [facility] (78040) Lymphocytes/100 30.1 % (N) 20 - 40 % [facility] WBC (Bld) [facility] (40107) MCH (RBC) 30.0 pg (N) 27 - 31 pg [facility] [Entitic mass] [facility] (72852) MCHC (RBC) 32.2 g/dL (N) 32 - 36 g/dL [facility] [Mass/Vol] [facility] (65658) MCV (RBC) 93.4 fL (N) 80 - 100 fL [facility] [Entitic vol] [facility] (36576) Monocytes (Bld) 0.6 10*3/uL (N) 0.3 - 0.9 [facility] [#/Vol] 10*3/uL [facility] (05398) Monocytes/100 6.9 % (N) 2 - 8 % [facility] WBC (Bld) [facility] (30924) Neutrophils 5.229 10*3/uL (N) 1.7 - 7 10*3/uL [facility] Health (Bld) [#/Vol] [facility] (82395) Neutrophils/100 60.1 % (N) 40 - 60 % [facility] WBC (Bld) [facility] (40972) Platelet mean 11.9 fL (N) 7.2 - 11.7 fL [facility] volume (Bld) [facility] [Entitic vol] [facility] (54717) Platelets (Bld) 261 10*3/uL (N) 150 - 450 [facility] [#/Vol] 10*3/uL [facility] (41060) Potassium 4.1 mmol/L (N) 3.7 - 5.2 mmol/L [facility] [Moles/Vol] [facility] (19777) Protein 6.9 g/dL (N) 6.4 - 8.3 g/dL [facility] [Mass/Vol] [facility] (29457) RBC (Bld) 4.56 10*6/uL (N) 4.2 - 6.1 [facility] [#/Vol] 10*6/uL [facility] (08762) Sodium 140 mmol/L (N) 135 - 145 mmol/L [facility] [Moles/Vol] [facility] (84850) Triglyceride 417 mg/dL (H) 0 - 150 mg/dL [facility] [Mass/Vol] [facility] (57141) TSH Qn 1.62 m[IU]/L (N) 0.4 - 4 m[IU]/L [facility] (02141) Urea nitrogen 15 mg/dL (N) 7 - 20 mg/dL [facility] [Mass/Vol] [facility] (50177) Urea NOT APPLICABLE (no code) [facility] nitrogen/Creatin [facility] [Mass ratio] [facility] (90118) WBC (Bld) 8.7 10*3/uL (N) 3.5 - 10.5 [facility] th [#/Vol] 10*3/uL [facility] (40305) Vital Signs The data below is from unstructured sources Vital Response Date/Time Temperature (Fahrenheit) 99.2 degree s F (97.6 - 99.5) 04/18/2016 5:19pm Temperature (Calculated Celsius) 37. 72839 degrees C (36.4 - 37.5) 04/18/2016 5:19pm Temperature Source Temporal 04/18/2016 5:19pm Pulse Rate (adult) 68 bpm (60 - 90) 04/18/2016 5:19pm Respiratory Rate 18 bpm (12 - 24) 04/18/2016 5:19pm O2 Sat by Pulse Oximetry 99 % (88 - 100) 04/18/2016 5:19pm Blood Pressure 118/81 mm Hg 04/18/2016 5:19pm Blood Pressure Mean 99 mm Hg 04/18/2016 4:05pm Pain Numeric Pain Scale 7 4:05pm Height (Feet) 5 feet 4:05pm Height (Inches) 3 inches 04/18/2016 4:05pm Height (Calculated Centimeters) 160. 934852 cm 04/18/2016 4:05pm Weight (Pounds) 150 pounds 04/18/2016 4:05pm Weight (Calculated Kilograms) 68.038 856 kilograms 04/18/2016 4:05pm Capillary Refill Capillary Refill Less Than 3 Seconds 04/18/2016 4:05pm Height 5 ft 3 in Weight 150 lb Body Mass Index 26.6 kg/m^2 Vital Response Date/Time Temperature (Fahrenheit) 97.1 degree s F (97.6 - 99.5) 07/25/2015 5:25pm Temperature (Calculated Celsius) 36. 75613 degrees C (36.4 - 37.5) 07/25/2015 5:25pm Temperature Source Temporal 07/25/2015 5:25pm Pulse Rate (adult) 59 bpm (60 - 90) 07/25/2015 5:25pm Respiratory Rate 16 bpm (12 - 24) 07/25/2015 5:25pm O2 Sat by Pulse Oximetry 98 % (88 - 100) 07/25/2015 5:25pm Blood Pressure 127/79 mm Hg 07/25/2015 5:25pm Blood Pressure Mean 101 mm Hg 07/25/2015 3:25pm Pain Pain Intensity 0 2014 5:25pm Height (Feet) 5 feet 10/2014 3:25pm Height (Inches) 4 inches 07/25/2015 3:25pm Height (Calculated Centimeters) 162. 349421 cm 07/25/2015 3:25pm Weight (Pounds) 162 pounds 07/25/2015 3:25pm Weight (Calculated Kilograms) 73.481 965 kilograms 07/25/2015 3:25pm Calculated BMI 27.80 10/2014 3:25pm Interventions No Information Plan of Treatment The data below is from unstructured sources Plan Of Care Visit/Account #[id number] (September 19, 2016 9:23pm - September 19, 2016 10:40pm) Patient Instructions Follow up with primary care in 5-7 days. take Protonix one tablet daily in the morning Take Carafate one tablet one hour before eating food 3 times a day. Take [id number]-npt-esxgmaw MiraLAX for constipation. Return to the emergency room if symptoms worsens or has any concern. Discharge Date 04/18/16 5:19pm Disposition 01 HOME, SELF-CARE Condition at Discharge Stable Instructions/Education Provided Phar yngitis (ED) Abscess (ED) Prescriptions See Medication Section Referrals MILES MURO [facility] Physician Additional Instructions/Education Co mplete your antibiotics as prescribed. Follow-up with your primary care provider early next week if not improving. Return to emergency room if symptoms are worsening. All discharge instructions reviewed with patient and/or family. Voiced understanding. Discharge Date 07/25/15 5:25pm Disposition 01 HOME, SELF-CARE Condition at Discharge Improved Instructions/Education Provided Ches t Pain (ED) Prescriptions See Medication Section Referrals MILES MURO [facility] Physician Goals No Information Social History No Information Functional Status The data below is from unstructured sources Functional and Cognitive Status No Functional Status Data Mental Status No Information Encounters Encounter Normalized Encounter Encounter Diagnosis Care Provi alfredo Organization Date Type 02-07-2018 Patient encounter no information no name (no phone) no organization name (no phone) NEGATED Patient encounter no information no name (no phone) no organization name 01-14-2018 (no phone) 01-11-2018 Patient encounter no information no name (no phone) no organization name (no phone) 01-04-2018 Patient encounter no information no name (no phone) no organization name (no phone) 12-31-2017 Patient encounter no information no name (no phone) no organization name (no phone) NEGATED Patient encounter no information no name (no phone) no organization name (no phone) 04-12-2019 Patient encounter no information no name (no phone) no organization name procedure (no phone) 04-12-2019 Patient encounter no information no name (no phone) no organization name procedure (no phone) 01-26-2019 Patient encounter no information no name (no phone) no organization name procedure (no phone) 01-23-2019 Patient encounter no information no name (no phone) no organization name procedure (no phone) 01-23-2019 Patient encounter no information no name (no phone) no organization name procedure (no phone) 01-23-2019 Patient encounter no information no name (no phone) no organization name procedure (no phone) Medical Equipment No Information Payers No Information Discharge Instructions Discharge Instructions Visit/Account #[id number] (September 19, 2016 9:23pm - September 19, 2016 10:40pm) DISCHARGE INSTRUCTIO NS Physician Documentation Advance Directives Directive Response Recor ded Date/Time Advance Directives No 3:25pm Directive Response Recor ded Date/Time Advance Directives No 3:25pm Resuscitation Status Full Code 07/25/15 3:25pm Summary Purpose eClinicalWorks Submission Additional Source Comments This clinical document has been generated using [employer] software that has been certified by the Office of the National Coordinator for Health Information Technology (ONC 15.99.04.3023.Diam.31.00.0.356485) and the National Committee for [employer] (NCQA, as an eMeasure certified technology). FOR RECORDS PERTAINING TO PATIENTS WHO ARE OR HAVE BEEN ENROLLED IN A CHEMICAL D EPENDENCY/SUBSTANCE ABUSE PROGRAM, SOME INFORMATION MAY BE OMITTED. This clinica l summary was aggregated from multiple sources. Caution should be exercised in using it in the provision of clinical care. This summary normalizes information from multiple sources, and as a consequence, information in this document may ma terially change the coding, format and clinical context of patient data. In bayron tion, data may be omitted in some cases. CLINICAL DECISIONS SHOULD BE BASED ON T HE PRIMARY CLINICAL RECORDS. [facility]. provides no warranty or guara ntee of the accuracy or completeness of information in this document.The followi ng information is based on time limited clinical information
--- OUTSIDE RECORDS SUMMARY | 2019-11-14 21:09 | XMS REPORT | Continuity of Care Document ---
Author Organization Unknown Address Unknown Phone Unavailable Allergies Active Description Code Type Severity Reaction Onset Reported/Identified Relationship to Patient Clinical Status Yes aspirin [id number] Drug Allergy Unknown N/A 06/15/2006 Yes codeine [id number] Drug Allergy Unknown N/A 07/25/2015 Medications There is no data. Problems Date Dx Coded Attending Type Code Diagnosis Diagnosed By 07/25/2015 RICHARD LOPEZ APRN Ot F17.210 NICOTINE DEPENDENCE, CIGARETTES, UNCOMPL 07/25/2015 RICHARD LOPEZ APRN Ot R07.89 OTHER CHEST PAIN 04/20/2016 KYRA SHAIKH, MAR T Ot F17.210 NICOTINE DEPENDENCE, CIGARETTES, UNCOMPL 04/20/2016 KYRA SHAIKH, MAR T Ot J02.9 ACUTE PHARYNGITIS, UNSPECIFIED 04/20/2016 KYRA SHAIKH, MAR T Ot R05 COUGH 04/20/2016 KYRA SHAIKH, MAR T Ot R09.81 NASAL CONGESTION 04/20/2016 KYRA SHAIKH, MAR T Ot R10.30 LOWER ABDOMINAL PAIN, UNSPECIFIED 04/20/2016 KYRA SHAIKH, MAR T Ot R50.9 FEVER, UNSPECIFIED 04/20/2016 KYRA SHAIKH, MAR T Ot R51 HEADACHE 04/24/2016 KYRA SHAIKH, MAR T Ot F17.210 NICOTINE DEPENDENCE, CIGARETTES, UNCOMPL 04/24/2016 KYRA SHAIKH, MAR T Ot J02.9 ACUTE PHARYNGITIS, UNSPECIFIED 04/24/2016 KYRA SHAIKH, MAR T Ot R05 COUGH 04/24/2016 KYRA SHAIKH, MAR T Ot R09.81 NASAL CONGESTION 04/24/2016 KYRA SHAIKH, MAR T Ot R10.30 LOWER ABDOMINAL PAIN, UNSPECIFIED 04/24/2016 KYRA SHAIKH, MAR T Ot R50.9 FEVER, UNSPECIFIED 04/24/2016 KYRA SHAIKH, MAR Kumar Ot R51 HEADACHE 02/07/2018 RICHARD LOPEZ APRN Ot J45.909 UNSPECIFIED ASTHMA, UNCOMPLICATED 02/07/2018 RICHARD LOPEZ APRN Ot L02.412 CUTANEOUS ABSCESS OF LEFT AXILLA 02/07/2018 RICHARD LOPEZ APRN Ot Z87.39 PERSONAL HISTORY OF DISEASES OF THE MS S 02/07/2018 RICHARD LOPEZ APRN Ot Z87.828 PERSONAL HISTORY OF OTH (HEALED) PHYSICA 02/07/2018 RICHARD LOPEZ APRN Ot Z88 .5 ALLERGY STATUS TO NARCOTIC AGENT STATUS Procedures There is no data. Results Test Result Range Streptococcus pyogenes antigen detection - 04/18/16 16:19 Streptococcus pyogenes antigen detection NEGATIVE NEGATIVE Bacterial throat culture - 04/18/16 16:1 9 Bacterial throat culture [id number] NRG FREE TEXT EXTERNAL PLUS ABUNDANT NORMAL NEHEMIAH NRG QUANTITY OF GROWTH Scant Growth NRG Urine beta human chorionic gonadotropin (hCG) measurement - 04/18/16 16:28 Urine beta human chorionic gonadotropin (hCG) measurem ent NEGATIVE NEGATIVE Complete urinalysis with reflex to cultu re - 04/18/16 16:28 Urine color determination YELLOW NRG Urine clarity determination SLIGHTLY CLOUDY NRG Urine pH measurement by test strip 5 5-9 Specific gravity of urine by test strip 1.025 1.016-1.022 Urine protein assay by test strip, semi-quantitative 1+ NEGATIVE Urine glucose detection by automated test strip NE GATIVE NEGATIVE Erythrocytes detection in urine sediment by light micr oscopy 5+ NEGATIVE Urine ketones detection by automated test strip NE GATIVE NEGATIVE Urine nitrite detection by test strip NEGATIVE NEGATIVE Urine total bilirubin detection by test strip NEGA TIVE NEGATIVE Urine urobilinogen measurement by automated test strip (mass/volume) NORMAL NORMAL Urine leukocyte esterase detection by dipstick 1+ NEGATIVE Automated urine sediment erythrocyte cou nt by microscopy (number/high power field) NONE NRG Automated urine sediment leukocyte count by microscopy (number/high power field) [HPF] NRG Bacteria detection in urine sediment by light microsco py MODERATE NRG Squamous epithelial cells detection in u rine sediment by light microscopy 25-50 NRG Crystals detection in urine sediment by light microsco py NONE NRG Casts detection in urine sediment by light microscopy NONE NRG Mucus detection in urine sediment by light microscopy SMALL NRG Complete urinalysis with reflex to culture NO NRG Complete urinalysis with reflex to cultu re - 05/06/19 09:20 Urine color determination YELLOW NRG Urine clarity determination VERY CLOUDY NRG Urine pH measurement by test strip 5 5-9 Specific gravity of urine by test strip 1.025 1.016-1.022 Urine protein assay by test strip, semi-quantitative 2+ NEGATIVE Urine glucose detection by automated test strip NE GATIVE NEGATIVE Erythrocytes detection in urine sediment by light micr oscopy 5+ NEGATIVE Urine ketones detection by automated test strip NE GATIVE NEGATIVE Urine nitrite detection by test strip POSITIVE NEGATIVE Urine total bilirubin detection by test strip 1+ NEGATIVE Urine urobilinogen measurement by automated test strip (mass/volume) 1 mg/dL NORMAL Urine leukocyte esterase detection by dipstick 2+ NEGATIVE Automated urine sediment erythrocyte cou nt by microscopy (number/high power field) NONE NRG Automated urine sediment leukocyte count by microscopy (number/high power field) [HPF] NRG Bacteria detection in urine sediment by light microsco py LARGE NRG Squamous epithelial cells detection in u rine sediment by light microscopy 25-50 NRG Crystals detection in urine sediment by light microsco py PRESENT NRG Casts detection in urine sediment by light microscopy NONE NRG Mucus detection in urine sediment by light microscopy NEGATIVE NRG Complete urinalysis with reflex to culture YES NRG Calcium oxalate crystals detection in ur ine sediment by light microscopy LARGE NRG Urine drug screening test - 05/06/19 09: 20 Urine phencyclidine detection by screening method NEGATIVE NEGATIVE Urine benzodiazepines detection by screening method NEGATIVE NEGATIVE Urine cocaine detection NEGATIVE NEGATI VE Urine amphetamines detection by screening method N EGATIVE NEGATIVE Urine methamphetamine detection by screening method NEGATIVE NEGATIVE Urine cannabinoids detection by screening method P OSITIVE NEGATIVE Urine opiates detection by screening method NEGATI VE NEGATIVE Urine barbiturates detection NEGATIVE N EGATIVE Screening urine tricyclic antidepressants detection NEGATIVE NEGATIVE Urine methadone detection by screening method NEGA TIVE NEGATIVE Urine oxycodone detection NEGATIVE NEGA TIVE Urine propoxyphene detection NEGATIVE N EGATIVE Bacterial urine culture - 05/06/19 09:20 Bacterial urine culture [id number] NRG COLONY COUNT >100,000/ML NRG FTX;REPORTABLE SUSCEPTIBILITY REPORTED 05-08-19 21. NRG Dirithromycin susceptibility test by dis k diffusion - 05/06/19 09:20 Gentamicin susceptibility test by minimum inhibitory c oncentration <= NRG Trimethoprim/sulfamethoxazole susceptibi lity test by minimum inhibitoryconcentration <= NRG Levofloxacin susceptibility test by minimum inhibitory concentration <= NRG Ampicillin susceptibility test by minimum inhibitory c oncentration <= NRG Cefazolin susceptibility test by minimum inhibitory co ncentration <= NRG Ceftriaxone susceptibility test by minimum inhibitory concentration <= NRG Ciprofloxacin susceptibility test by minimum inhibitor y concentration <= NRG Meropenem susceptibility test by minimum inhibitory co ncentration <= NRG Nitrofurantoin susceptibility test by mi nimum inhibitory concentration <= NRG Amoxicillin and clavulanate potassium susc JULISSA <= NRG Complete blood count (CBC) with automate d white blood cell (WBC) differential - 05/06/19 09:28 Blood leukocytes automated count (number/volume) 8.8 10*3/uL 4.3-11.0 Blood erythrocytes automated count (number/volume) 4.60 10*6/uL 4.35-5.85 Venous blood hemoglobin measurement (mass/volume) 13.7 g/dL 11.5-16.0 Blood hematocrit (volume fraction) 41 % 35-52 Automated erythrocyte mean corpuscular volume 90 [ foz_us] 80-99 Automated erythrocyte mean corpuscular h emoglobin (mass per erythrocyte) 30 pg 25-34 Automated erythrocyte mean corpuscular h emoglobin concentration measurement (mass/volume) 33 g/dL 32-36 Automated erythrocyte distribution width ratio 13. 2 % 10.0- 14.5 Automated blood platelet count (count/volume) 261 10*3/uL 130-400 Automated blood platelet mean volume measurement 10.5 [foz_us] 7.4-10.4 Automated blood neutrophils/100 leukocytes 67 % 42-75 Automated blood lymphocytes/100 leukocytes 22 % 12-44 Blood monocytes/100 leukocytes 9 % 0-12 Automated blood eosinophils/100 leukocytes 2 % 0-10 Automated blood basophils/100 leukocytes 0 % 0-10 Blood neutrophils automated count (number/volume) 5.9 10*3 1.8-7.8 Blood lymphocytes automated count (number/volume) 1.9 10*3 1.0-4.0 Blood monocytes automated count (number/volume) 0. 8 10*3 0.0-1.0 Automated eosinophil count 0.1 10*3/uL 0 .0-0.3 Automated blood basophil count (count/volume) 0.0 10*3/uL 0.0-0.1 Comprehensive metabolic panel - 05/06/19 09:28 Serum or plasma sodium measurement (moles/volume) 137 mmol/L 135-145 Serum or plasma potassium measurement (moles/volume) 3.6 mmol/L 3.6-5.0 Serum or plasma chloride measurement (moles/volume) 108 mmol/L 98-107 Carbon dioxide 21 mmol/L 21-32 Serum or plasma anion gap determination (moles/volume) 8 mmol/L 5-14 Serum or plasma urea nitrogen measurement (mass/volume ) 12 mg/dL 7-18 Serum or plasma creatinine measurement (mass/volume) 0.81 mg/dL 0.60-1.30 Serum or plasma urea nitrogen/creatinine mass ratio 15 NRG Serum or plasma creatinine measurement w ith calculation of estimated glomerular filtration rate > NRG Serum or plasma glucose measurement (mass/volume) 78 mg/dL 70-105 Serum or plasma calcium measurement (mass/volume) 8.9 mg/dL 8.5-10.1 Serum or plasma total bilirubin measurement (mass/volu me) 0.4 mg/dL 0.1-1.0 Serum or plasma alkaline phosphatase rancho surement (enzymatic activity/volume) 84 U/L 40-136 Serum or plasma aspartate aminotransfera se measurement (enzymatic activity/volume) 15 U/L 5-34 Serum or plasma alanine aminotransferase measurement (enzymatic activity/volume) 16 U/L 0-55 Serum or plasma protein measurement (mass/volume) 7.0 g/dL 6.4-8.2 Serum or plasma albumin measurement (mass/volume) 4.1 g/dL 3.2-4.5 CALCIUM CORRECTED 8.8 mg/dL 8.5-10.1 Magnesium - 05/06/19 09:28 Magnesium 2.0 mg/dL 1.6-2.4 Serum or plasma amylase measurement (enz ymatic activity/volume) - 05/06/19 09:28 Serum or plasma amylase measurement (enzymatic activit y/volume) 18 U/L 25-125 Lipase - 05/06/19 09:28 Lipase 21 U/L 8-78 Serum or plasma choriogonadotropin (preg aman test) detection - 05/06/19 09:28 Serum or plasma choriogonadotropin ( test) de tection NEGATIVE NEGATIVE Complete urinalysis with reflex to cultu re - 11/14/19 18:15 Urine color determination YELLOW NRG Urine clarity determination SL CLOUDY N RG Urine pH measurement by test strip 5.5 5-9 Specific gravity of urine by test strip >= 1.016-1.022 Urine protein assay by test strip, semi-quantitative TRACE NEGATIVE Urine glucose detection by automated test strip NE GATIVE NEGATIVE Erythrocytes detection in urine sediment by light micr oscopy 3+ NEGATIVE Urine ketones detection by automated test strip NE GATIVE NEGATIVE Urine nitrite detection by test strip NEGATIVE NEGATIVE Urine total bilirubin detection by test strip 1+ NEGATIVE Urine urobilinogen measurement by automated test strip (mass/volume) 0.2 mg/dL < = 1.0 Urine leukocyte esterase detection by dipstick TRA CE NEGATIVE Automated urine sediment erythrocyte cou nt by microscopy (number/high power field) [HPF] NRG Automated urine sediment leukocyte count by microscopy (number/high power field) [HPF] NRG Bacteria detection in urine sediment by light microsco py FEW NRG Squamous epithelial cells detection in u rine sediment by light microscopy 2-5 NRG Crystals detection in urine sediment by light microsco py PRESENT NRG Casts detection in urine sediment by light microscopy NONE NRG Mucus detection in urine sediment by light microscopy LARGE NRG Complete urinalysis with reflex to culture YES NRG Amorphous sediment detection in urine sediment by ligh t microscopy FEW CLAIRE URATES NRG Urine Trichomonas species detection by light microscop y FEW NRG Complete blood count (CBC) with automate d white blood cell (WBC) differential - 11/14/19 18:27 Blood leukocytes automated count (number/volume) 9.5 10*3/uL 4.3-11.0 Blood erythrocytes automated count (number/volume) 4.67 10*6/uL 4.35-5.85 Venous blood hemoglobin measurement (mass/volume) 14.3 g/dL 11.5-16.0 Blood hematocrit (volume fraction) 42 % 35-52 Automated erythrocyte mean corpuscular volume 90 [ foz_us] 80-99 Automated erythrocyte mean corpuscular h emoglobin (mass per erythrocyte) 31 pg 25-34 Automated erythrocyte mean corpuscular h emoglobin concentration measurement (mass/volume) 34 g/dL 32-36 Automated erythrocyte distribution width ratio 13. 3 % 10.0- 14.5 Automated blood platelet count (count/volume) 279 10*3/uL 130-400 Automated blood platelet mean volume measurement 10.7 [foz_us] 7.4-10.4 Automated blood neutrophils/100 leukocytes 68 % 42-75 Automated blood lymphocytes/100 leukocytes 23 % 12-44 Blood monocytes/100 leukocytes 7 % 0-12 Automated blood eosinophils/100 leukocytes 1 % 0-10 Automated blood basophils/100 leukocytes 0 % 0-10 Blood neutrophils automated count (number/volume) 6.4 10*3 1.8-7.8 Blood lymphocytes automated count (number/volume) 2.2 10*3 1.0-4.0 Blood monocytes automated count (number/volume) 0. 7 10*3 0.0-1.0 Automated eosinophil count 0.1 10*3/uL 0 .0-0.3 Automated blood basophil count (count/volume) 0.0 10*3/uL 0.0-0.1 Whole blood basic metabolic panel - 10/22 12/10 18:27 Serum or plasma sodium measurement (moles/volume) 139 mmol/L 135-145 Serum or plasma potassium measurement (moles/volume) 3.7 mmol/L 3.6-5.0 Serum or plasma chloride measurement (moles/volume) 108 mmol/L 98-107 Carbon dioxide 20 mmol/L 21-32 Serum or plasma anion gap determination (moles/volume) 11 mmol/L 5-14 Serum or plasma urea nitrogen measurement (mass/volume ) 13 mg/dL 7-18 Serum or plasma creatinine measurement (mass/volume) 0.81 mg/dL 0.60-1.30 Serum or plasma urea nitrogen/creatinine mass ratio 16 NRG Serum or plasma creatinine measurement w ith calculation of estimated glomerular filtration rate > NRG Serum or plasma glucose measurement (mass/volume) 90 mg/dL 70-105 Serum or plasma calcium measurement (mass/volume) 9.1 mg/dL 8.5-10.1 Serum or plasma choriogonadotropin (preg aman test) detection - 11/14/19 18:27 Serum or plasma choriogonadotropin ( test) de tection NEGATIVE NEGATIVE Encounters ACCT No. Visit Date/Time Discharge Status Pt. Type Provider Facility Loc./Unit Complaint [id number] 2019 08:15:00 019 12:29:00 DIS Emergency BRUNA BURROUGHS [facility]el[facility] DIARRHEA [id number] 02/07/2018 14:19:00 018 15:02:00 DIS Emergency RICHARD LOPEZ APRN [facility] ABSCESS UNDER LEFT ARM [id number] 04/18/2016 16:00:00 016 17:19:00 DIS Outpatient KYRA SHAIKH, MAR Kumar [facility] NAUSEA/CHILLS/S INUS CONGESTION [id number] 07/25/2015 15:13:00 015 17:25:00 DIS Emergency RICHARD LOPEZ APRN [facility] CHEST PAIN [id number] 11/14/2019 18:37:00 Document Registration
== END 2019-11-14 20:05 | disposition home or self-care (01) ==
LOC: EDUNIT# 17:52 → ER 17:53
DX: A59.09 Other urogenital trichomoniasis (principal); Z85.41 Personal history of malignant neoplasm of cervix uteri; F17.210 Nicotine dependence, cigarettes, uncomplicated; F12.90 Cannabis use, unspecified, uncomplicated; M41.9 Scoliosis, unspecified
CPT/HCPCS: 36415; 74177; 80048; 81000; 84703; 85025; 87070; 87077; 87088; 87205; 87210; 87491; 87591

== ENCOUNTER 2020-02-04 04:57 | Emergency (ER) | payer SELFPAY ==
[~2020-02-04 04:57] MED LIST changes: +METR-145 PO
[2020-02-04] MEDS ORDERED: ONDANSETRON 4 MG (ZOFRAN) ORAL DISSOLVE TAB ONE (06:42)
[2020-02-04] MEDS ORDERED: ONDANSETRON 4 MG (ZOFRAN) ORAL DISSOLVE TAB PO ONE (07:00)
--- NOTE | 2020-02-04 07:30 | ED General ---
General Chief Complaint: General Problems/Pain Stated Complaint: NICOTINE POISIONING Nursing Triage Note: TO ED [facility] FROM AMBULANCE INTO ER ROOM 7. PT STATES SHE THINKS SHE HAS "NICOTINE POISONING" FROM NEW VAPE. UNKNOWN TO PT AMOUNT SHE WAS USING VAPE, BUT NOTICED THIS PAST WEDNESDAY SHE BECAME LIGHTHEADED, NAUSEA. STATES SHE STOPPED VAPING LAST NIGHT. Nursing Sepsis Screen: No Definite Risk Source of Information: Patient Exam Limitations: No Limitations History of Present Illness Date Seen by Provider: Feb 04, 2020 Time Seen by Provider: 06:20 Initial Comments Here with report of not feeling well and thought it might be from starting vape 3 days ago. She thought she might have nicotine poisoning as she is been feeling lightheaded and nauseated and did have some diarrhea. No contact with anybody with COVID-19 patient states that she stays at home. Denies cough or shortness of breath. She came by ambulance because her symptoms were getting worse although she feels much better now. Timing/Duration: 1-2 Days, Other (better now) Severity: Moderate Associated Systoms: No Chest Pain, No Cough, No Fever/Chills; Malaise, Nausea/Vomiting; No Shortness of Air; Weakness Allergies and Home Medications Allergies Coded Allergies: codeine (Verified Allergy, Unknown, 07/25/15) Home Medications Albuterol Sulfate 8.5 Gm Hfa.aer.ad, 1-2 PUFF IH PRN, (Reported) Ciprofloxacin HCl 500 Mg Tablet, 500 MG PO BID Prescribed by: CARI MCFARLAND on 05/06/19 115 Doxycycline Hyclate 100 Mg Tablet, 100 MG PO BID Prescribed by: MAR PAK on 04/18/16 1659 Hyoscyamine Sulfate 0.125 Mg Tab.subl, 1-2 TAB SL Q4H Prescribed by: CARI MCFARLAND on 05/06/19 115 Lactobacillus Acidophilus 1 Each Capsule, 2 EACH PO QID Prescribed by: CARI MCFARLAND on 05/06/19 115 Metronidazole 500 Mg Tablet, 2,000 MG PO ONCE Prescribed by: RICHARD OLPEZ on 11/14/191947 Ondansetron 4 Mg Tab.rapdis, 4 MG PO Q4H Prescribed by: CARI MCFARLAND on 05/06/19 115 Pantoprazole Sodium 40 Mg Granpkt.dr, 40 MG PO DAILY Prescribed by: RICHARD LOPEZ on 07/25/15 1733 Sulfamethoxazole/Trimethoprim 1 Each Tablet, 1 EACH PO BID Prescribed by: RICHARD LOPEZ on 02/07/18 2236 Sulfamethoxazole/Trimethoprim 1 Each Tablet, 1 EACH PO BID Prescribed by: RICHARD LOPEZ on 02/10/18 1024 Sulfamethoxazole/Trimethoprim 1 Each Tablet, 1 EACH PO BID Prescribed by: RICHARD LOPEZ on 02/07/18 1452 Patient Home Medication List Home Medication List Reviewed: Yes Review of Systems Review of Systems Constitutional: see HPI, chills; No fever; malaise EENTM: no symptoms reported Respiratory: No cough, No short of breath Cardiovascular: no symptoms reported Gastrointestinal: diarrhea, nausea, vomiting Genitourinary: no symptoms reported : No Musculoskeletal: No muscle pain; muscle weakness Skin: no symptoms reported Psychiatric/Neurological: Anxiety; Denies Headache Past Lzckyyk-Pgscmr-Fnhobo Hx Past Med/Social Hx: Reviewed Nursing Past Med/Soc Hx Patient Social History Alcohol Use: Denies Use Drug of Choice: weed Type Used: Electronic/Vapor 2nd Hand Smoke Exposure: Yes Recent Foreign Travel: No Contact w/Someone Who Travel: No Recent Infectious Disease Expo: No Recent Hopitalizations: No Physical Abuse: No Sexual Abuse: No Mistreated: No Fear: No Past Medical History Surgeries: Yes (LEEP) Respiratory: Yes (tobaccoism) Asthma Cardiac: No Neurological: Yes Concussion Reproductive Disorders: Yes (CERVICAL DYSPLASIA--S/P LEEP) Genitourinary: No Gastrointestinal: Yes (GASTRITIS; H.PYLORI) Musculoskeletal: Yes Scoliosis Endocrine: No HEENT: No Cancer: No Psychosocial: Yes Anxiety, PTSD, Bipolar Integumentary: No Blood Disorders: No Family Medical History Reviewed Nursing Family Hx Heart Disease, Cancer, Diabetes Physical Exam Vital Signs Vital Signs - First Documented 02/04/20 05:00 Temp 36.8 Pulse 58 Resp 16 B/P (MAP) 122/72 (89) O2 Delivery Room Air Capillary Refill : Less Than 3 Seconds Height, Weight, BMI Height: 5'4.00" Weight: 174lbs. 0oz. [id number]; 28.00 BMI Method:Stated General Appearance: No Apparent Distress, WD/WN HEENT: PERRL/EOMI, Pharynx Normal Neck: Non Tender, Supple Respiratory: Lungs Clear, Normal Breath Sounds Cardiovascular: Regular Rate, Rhythm, No Murmur Gastrointestinal: Normal Bowel Sounds, No Organomegaly, No Pulsatile Mass, Non Tender, Soft Extremity: Normal Range of Motion, Non Tender Neurologic/Psychiatric: Alert, Oriented x3 Skin: Normal Color, Warm/Dry Progress/Results/Core Measures Suspected Sepsis Recent Fever Within 48 Hours: No Infection Criteria Present: None New/Unexplained Altered Menta: No Sepsis Screen: No Definite Risk SIRS Temperature: Pulse: 58 Respiratory Rate: 16 Blood Pressure 122 /72 Mean: 89 Results/Orders Lab Results Laboratory Tests Test 02/04/20 06:55 Range/Units My Orders Orders - CANDE GARCÍA MD Ondansetron Oral Dissolve Tab (Zofran (02/04/20 07:00) Urinalysis (02/04/20 06:59) Urine Bedside (02/04/20 06:59) Coronavirus Sars-Cov-2 So 2018 (02/04/20 07:18) Medications Given in ED Current Medications Medications Dose Ordered Sig/Mark Route Start Time Stop Time Status Last Admin Dose Admin Ondansetron HCl 4 mg STK-MED ONCE .ROUTE 02/04/20 06:42 02/04/20 06:44 DC 02/04/20 06:49 4 MG Vital Signs/I&O 02/04/20 05:00 Temp 36.8 Pulse 58 Resp 16 B/P (MAP) 122/72 (89) O2 Delivery Room Air Capillary Refill : Less Than 3 Seconds Blood Pressure Mean: 89 Progress Note : Progress Note Seen and evaluated. Patient has normal exam and normal vital signs currently. States that she had diarrhea but also that her stools were only just loose. Does not fit pattern of nicotine overdose as she is not tachycardic and has normal blood pressure. While she does not have significant exposure risk for COVID-19, there is community spread currently so we will evaluate for that. This may just be viral infection otherwise or a result of intolerance to the vapor cigarettes. UA she is doing better currently. COVID swab was done. Zofran or milligrams by mouth given. UA and UCG done and UCG is negative. Overall doing better. Pr ecautions given. Discharged home with return precautions. Patient verbalize understanding instructions and agreement with plan. Departure Impression Primary Impression: Viral illness Additional Impression: COVID-19 evaluation Disposition: HOME, SELF-CARE Condition: Improved Departure-Patient Inst. Decision time for Depature: 07:37 Referrals: [facility] (PCP/Family) Primary Care Physician Patient Instructions: Coronavirus Disease 2019 (COVID-19) (DC), Diarrhea in Adolescents and Adults Add. Discharge Instructions: All discharge instructions reviewed with patient and/or family. Voiced understanding. Drink plenty of fluids and get plenty of rest. You will be quarantined until COVID-19 swab results are known. If these are negative then you need to stay isolated until 3 days after symptoms have resolved. If it is positive then you will be directed for quarantined by the health department. Results should be available and 24-48 hours. You may take ibuprofen 800 mg every 8 hours as needed for pain or fever. You may also take Tylenol/acetaminophen 1000 mg every 8 hours as needed for pain or fever. Return for worse pain, fever, vomiting, weakness, breathing problems or other concerns as needed. Follow-up with your DrLudmila in a few days for recheck as needed. CANDE GARCÍA MD Feb 04, 2020 07:30
[2020-02-04 07:31] LABS: BILIRUBIN,URINE NEGATIVE (NEGATIVE); CLARITY,URINE SL CLOUDY; COLOR,URINE YELLOW; GLUCOSE, URINE (UA) NEGATIVE (NEGATIVE); KETONES,URINE NEGATIVE (NEGATIVE); LEUKOCYTE ESTERASE ,URINE NEGATIVE (NEGATIVE); NITRITE,URINE NEGATIVE (NEGATIVE); PROTEIN,URINE NEGATIVE (NEGATIVE)
[2020-02-04 07:41] VITALS: BP 116/72
[2020-02-04 07:42] LABS: BACTERIA,URINE FEW /HPF; SQUAMOUS EPITHELIAL CELL,UR 25-50 /HPF
--- NOTE | 2020-02-04 08:09 | NUR ---
Note faheem in EDM - 02/04/20 at 0811 by GRUPO emergent verbal concent obtained for central line placement. Dr Shepard in room talking to the pt at this time. bp 86/54. Pt a/o.
== END 2020-02-04 07:41 | disposition home or self-care (01) ==
LOC: EDUNIT# 04:57 → ER 05:00
DX: B34.9 Viral infection, unspecified (principal); J45.909 Unspecified asthma, uncomplicated; Z20.828 Contact with and (suspected) exposure to other viral communicable diseases; Z88.5 Allergy status to narcotic agent; Z77.22 Contact with and (suspected) exposure to environmental tobacco smoke (acute) (chronic); Z87.820 Personal history of traumatic brain injury; Z82.49 Family history of ischemic heart disease and other diseases of the circulatory system
CPT/HCPCS: 81000; 84703; 99283; U0002; 87635

== ENCOUNTER 2020-02-07 15:11 | Emergency (ER) | payer SELFPAY ==
[~2020-02-07] VITALS: Ht 165 cm; Wt 75.5 kg
[2020-02-07] MEDS ORDERED: MECLIZINE 25 MG (ANTIVERT) TAB PO ONE (15:30)
--- NOTE | 2020-02-07 15:33 | ED EENT ---
History of Present Illness General Stated Complaint: HEAD PAIN/PRESSURE/DIZZINESS Source: patient Exam Limitations: no limitations History of Present Illness Date Seen by Provider: Feb 07, 2020 Time Seen by Provider: 15:22 Initial Comments 39-year-old female presents with pressure in the front part of her head, some ringing in her ears, some dizziness with head movement. Patient was seen here couple days ago with similar type symptoms and diagnosed with a viral illness. Patient denies any neck pain. Patient does not have any nausea vomiting fevers chills. She does not have any hearing loss. Patient was tested for COVID in the screen came back negative. Allergies and Home Medications Allergies Coded Allergies: codeine (Verified Allergy, Unknown, 07/25/15) Home Medications Albuterol Sulfate 8.5 Gm Hfa.aer.ad, 1-2 PUFF IH PRN, (Reported) Ciprofloxacin HCl 500 Mg Tablet, 500 MG PO BID Prescribed by: CARI MCFARLAND on 05/06/19 1158 Doxycycline Hyclate 100 Mg Tablet, 100 MG PO BID Prescribed by: MAR PAK on 04/18/16 1659 Doxycycline Hyclate 100 Mg Tablet, 100 MG PO BID Prescribed by: ONIEL HILLIARD on 02/07/20 1612 Hyoscyamine Sulfate 0.125 Mg Tab.subl, 1-2 TAB SL Q4H Prescribed by: CARI MCFARLAND on 05/06/19 1158 Lactobacillus Acidophilus 1 Each Capsule, 2 EACH PO QID Prescribed by: CARI MCFARLAND on 05/06/19 1158 Metronidazole 500 Mg Tablet, 2,000 MG PO ONCE Prescribed by: RICHARD LOPEZ on 11/14/191947 Ondansetron 4 Mg Tab.rapdis, 4 MG PO Q4H Prescribed by: CARI MCFARLAND on 05/06/19 1158 Pantoprazole Sodium 40 Mg Granpkt.dr, 40 MG PO DAILY Prescribed by: RICHARD LOPEZ on 07/25/15 1733 Sulfamethoxazole/Trimethoprim 1 Each Tablet, 1 EACH PO BID Prescribed by: RICHARD LOPEZ on 02/07/18 2236 Sulfamethoxazole/Trimethoprim 1 Each Tablet, 1 EACH PO BID Prescribed by: RICHARD LOPEZ on 02/10/18 1024 Sulfamethoxazole/Trimethoprim 1 Each Tablet, 1 EACH PO BID Prescribed by: RICHARD LOPEZ on 02/07/18 1452 Patient Home Medication List Home Medication List Reviewed: Yes Review of Systems Review of Systems Constitutional: No chills; dizziness; No fever, No weakness Eyes: No Symptoms Reported Ears: Dizziness, Tinnitus Nose: no symptoms reported Mouth: no symptoms reported Throat: no symptoms reported Respiratory: No cough, No short of breath Cardiovascular: No chest pain, No palpitations Gastrointestinal: no symptoms reported Skin: no symptoms reported Neurological: No Symptoms Reported Past Dgyncvx-Vazmni-Rgauoe Hx Past Med/Social Hx: Reviewed Nursing Past Med/Soc Hx Patient Social History Drug of Choice: weed Type Used: Electronic/Vapor 2nd Hand Smoke Exposure: Yes Recent Foreign Travel: No Contact w/Someone Who Travel: No Recent Hopitalizations: No Past Medical History Surgeries: Yes (LEEP) Respiratory: Yes (tobaccoism) Asthma Cardiac: No Neurological: Yes Concussion Reproductive Disorders: Yes (CERVICAL DYSPLASIA--S/P LEEP) Genitourinary: No Gastrointestinal: Yes (GASTRITIS; H.PYLORI) Musculoskeletal: Yes Scoliosis Endocrine: No HEENT: No Cancer: No Psychosocial: Yes Anxiety, PTSD, Bipolar Integumentary: No Blood Disorders: No Family Medical History Heart Disease, Cancer, Diabetes Physical Exam Vital Signs Vital Signs - First Documented 02/07/20 15:15 Temp 36.9 Pulse 69 Resp 20 B/P (MAP) 115/97 (103) Pulse Ox 97 O2 Delivery Room Air Height, Weight, BMI Height: 5'4.00" Weight: 174lbs. 0oz. 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, normal mood/affect, oriented x 3 Skin: normal color, warm/dry Progress/Results/Core Measures Results/Orders Lab Results Laboratory Tests Test 02/07/20 15:33 Range/Units White Blood Count 13.9 H 4.3-11.0 10^3/uL Red Blood Count 4.73 4.35-5.85 10^6/uL Hemoglobin 14.5 11.5-16.0 G/DL Hematocrit 43 35-52 % Mean Corpuscular Volume 90 80-99 FL Mean Corpuscular Hemoglobin 31 25-34 PG Mean Corpuscular Hemoglobin Concent 34 32-36 G/DL Red Cell Distribution Width 12.6 10.0-14.5 % Platelet Count 273 130-400 10^3/uL Mean Platelet Volume 10.8 H 7.4-10.4 FL Neutrophils (%) (Auto) 77 H 42-75 % Lymphocytes (%) (Auto) 17 12-44 % Monocytes (%) (Auto) 5 0-12 % Eosinophils (%) (Auto) 1 0-10 % Basophils (%) (Auto) 0 0-10 % Neutrophils # (Auto) 10.7 H 1.8-7.8 X 10^3 Lymphocytes # (Auto) 2.4 1.0-4.0 X 10^3 Monocytes # (Auto) 0.6 0.0-1.0 X 10^3 Eosinophils # (Auto) 0.1 0.0-0.3 10^3/uL Basophils # (Auto) 0.0 0.0-0.1 10^3/uL Sodium Level 138 135-145 MMOL/L Potassium Level 4.0 3.6-5.0 MMOL/L Chloride Level 106 98-107 MMOL/L Carbon Dioxide Level 21 21-32 MMOL/L Anion Gap 11 5-14 MMOL/L Blood Urea Nitrogen 16 7-18 MG/DL Creatinine 0.85 0.60-1.30 MG/DL Estimat Glomerular Filtration Rate > 60 BUN/Creatinine Ratio 19 Glucose Level 92 70-105 MG/DL Calcium Level 9.5 8.5-10.1 MG/DL Corrected Calcium 9.1 8.5-10.1 MG/DL Total Bilirubin 0.5 0.1-1.0 MG/DL Aspartate Amino Transf (AST/SGOT) 15 5-34 U/L Alanine Aminotransferase (ALT/SGPT) 15 0-55 U/L Alkaline Phosphatase 86 40-136 U/L C-Reactive Protein High Sensitivity 0.39 0.00-0.50 MG/DL Total Protein 7.8 6.4-8.2 GM/DL Albumin 4.5 3.2-4.5 GM/DL Procalcitonin 0.02 <0.10 NG/ML My Orders Orders - ONIEL HILLIARD DO Cbc With Automated Diff (02/07/20 15:23) Comprehensive Metabolic Panel (02/07/20 15:23) Hs C Reactive Protein (02/07/20 15:23) Procalcitonin (Pct) (02/07/20 15:23) Meclizine Tablet (Antivert Tablet) (02/07/20 15:30) Medications Given in ED Current Medications Medications Dose Ordered Sig/Mark Route Start Time Stop Time Status Last Admin Dose Admin Meclizine HCl 25 mg ONCE ONCE PO 02/07/20 15:30 02/07/20 15:31 DC 02/07/20 15:28 25 MG Vital Signs/I&O 02/07/20 02/07/20 15:15 16:30 Temp 36.9 Pulse 69 83 Resp 20 18 B/P (MAP) 115/97 (103) 123/78 Pulse Ox 97 99 O2 Delivery Room Air Room Air Departure Impression Primary Impression: Sinusitis Qualified Codes: J01.10 - Acute frontal sinusitis, unspecified Disposition: HOME, SELF-CARE Condition: Stable Departure-Patient Inst. Referrals: [facility] (PCP/Family) Primary Care Physician Patient Instructions: Sinusitis in Adults, Headache, Adult (DC), [facility]. Scripts Doxycycline Hyclate (Doxycycline Hyclate) 100 Mg Tablet 100 MG PO BID, #20 TAB 0 Refills Prov: ONIEL HILLIARD DO 02/07/20 ONIEL HILLIARD DO Feb 07, 2020 15:33
[2020-02-07 15:43] LABS: BASOPHILS % (AUTO) 0 % (0-10); EOSINOPHILS # (AUTO) 0.1 10^3/uL (0.0-0.3); EOSINOPHILS % (AUTO) 1 % (0-10); HEMATOCRIT 43 % (35-52); HEMOGLOBIN 14.5 G/DL (11.5-16.0); LYMPHOCYTES # (AUTO) 2.4 X 10^3 (1.0-4.0); LYMPHOCYTES % (AUTO) 17 % (12-44); MEAN CORPUSCULAR HEMOGLOBIN 31 PG (25-34); MEAN CORPUSCULAR HGB CONC 34 G/DL (32-36); MEAN CORPUSCULAR VOLUME 90 FL (80-99); MEAN PLATELET VOLUME 10.8 FL (7.4-10.4); MONOCYTES # (AUTO) 0.6 X 10^3 (0.0-1.0); MONOCYTES % (AUTO) 5 % (0-12); NEUTROPHILS # (AUTO) 10.7 X 10^3 (1.8-7.8); NEUTROPHILS % (AUTO) 77 % (42-75); PLATELET COUNT 273 10^3/uL (130-400); RED CELL DISTRIBUTION WIDTH 12.6 % (10.0-14.5); WHITE BLOOD COUNT 13.9 10^3/uL (4.3-11.0)
[2020-02-07 16:01] LABS: ALBUMIN 4.5 GM/DL (3.2-4.5); CHLORIDE 106 MMOL/L (98-107); SODIUM 138 MMOL/L (135-145)
[2020-02-07 16:02] LABS: CALCIUM 9.5 MG/DL (8.5-10.1)
[2020-02-07 16:03] LABS: GLUCOSE 92 MG/DL (70-105)
[2020-02-07 16:04] LABS: TOTAL PROTEIN 7.8 GM/DL (6.4-8.2)
[2020-02-07 16:05] LABS: BILIRUBIN,TOTAL 0.5 MG/DL (0.1-1.0); CARBON DIOXIDE 21 MMOL/L (21-32)
[2020-02-07 16:07] LABS: ALKALINE PHOSPHATASE 86 U/L (40-136); CREATININE SERUM 0.85 MG/DL (0.60-1.30); GFR ESTIMATED > 60
[2020-02-07 16:08] LABS: BUN/CREATININE RATIO 19
[2020-02-07 16:10] LABS: ALANINE AMINOTRANSFERASE 15 U/L (0-55)
[2020-02-07] MEDS ORDERED: DOXY100T2 PO (16:12)
[2020-02-07 16:30] VITALS: BP 123/78
--- OUTSIDE RECORDS SUMMARY | 2020-02-07 19:45 | XMS REPORT | Continuity of Care Document ---
Demographics Preferred Language Unknown Marital Status Unknown Episcopal Affiliation Unknown Race Unknown Ethnic Group Unknown Author Organization Unknown Address Unknown Phone Unavailable Allergies Active Description Code Type Severity Reaction Onset Reported/Identified Relationship to Patient Clinical Status Yes NO KNOWN DRUG ALLERGIES [id number] Drug Allergy N/A N/A 09/19/2016 Yes No Known Allergies NKMA N/A N/A 09/29/2016 Medications Medication Packaging Start Date St op Date Route Dosage Sig ondansetron(Zofran) 2 mL 09/29/2016 IV Push 4 mg 4 mg = 2 mL, IV Push, q30min, PRN: Nausea or Vomiting aspirin(aspirin) 4 tabs 09/29/2016 09/29/2016 Oral 324 mg 324 mg = 4 tabs, Oral, Once, PRN: Other (See Comment) albuterol(ProAir HFA 90 mcg/ inh inhalation aerosol) puffs 09/29/2016 Inhalation puffs, Inhalation, QID, 0 Re fill(s) pantoprazole(Protonix) 09/29/2016 Oral Oral , Daily, 0 Refill(s) traMADol(traMADol) 1 tabs 09/29/2016 09/29/2016 Oral 50 mg 50 mg = 1 tabs, Oral, Once Problems Date Dx Coded Attending Type Code Diagnosis Diagnosed By 09/19/2016 IVETH VELOZ MD Other K29.00 ACUTE GASTRITIS WITHOUT BLEEDING 09/19/2016 IVETH VELOZ MD Other R10.12 LEFT UPPER QUADRANT PAIN 10/01/2016 Villagran Howard Final R07. 89 Other chest pain 10/01/2016 Villagran Howard Reason R07 .9 Chest pain, unspecified Procedures There is no data. Results Test Result Range CBC With Platelet and Differential - 03/08 00:57 Absolute Basophils 0.03 10*3/uL 0.00-0.2 0 Absolute Eosinophils 0.15 10*3/uL 0.00-0 .50 Absolute Lymphocytes 2.55 10*3/uL 0.80-3 .30 Absolute Monocytes 0.76 10*3/uL 0.30-1.0 0 Absolute Neutrophils 4.74 10*3/uL 1.90-7 .00 Basophils 0 % 0-2 Eosinophils 2 % 0-4 HCT 38.5 % 37.0-47.0 HGB 12.6 g/dL 12.0-16.0 Immature Granulocytes 0.2 % 0.0-1.0 Lymphocytes 31 % 20-46 MCH 30.2 pg 27.0-32.0 MCHC 32.7 g/dL 32.0-36.0 MCV 92.3 fL 82.0-99.0 Monocytes 9 % 4-11 MPV 10.4 fL 9.4-12.4 Neutrophils 58 % 51-75 Nucleated RBC Automated 0.0 /100 WBC Platelet Count 224 K/uL 150-400 RBC 4.17 10*6/uL 4.00-5.20 RDW 13.6 % 11.5-14.5 WBC 8.2 K/uL 4.8-10.8 Comprehensive Metabolic Panel (CMP) - 00:57 Albumin 3.7 g/dL 3.5-4.8 Alkaline Phosphatase 60 U/L 26-104 ALT (SGPT) 13 U/L 14-54 Anion Gap 8 NA 3-20 AST (SGOT) 17 U/L 15-41 Bilirubin Total 0.4 mg/dL 0.2-1.2 BUN 17 mg/dL 4-20 Calcium 9.1 mg/dL 8.6-10.0 Chloride 105 mEq/L 99-109 CO2 25 mEq/L 22-32 Creatinine 0.69 mg/dL 0.44-1.03 Globulin 2.8 g/dL 1.9-4.3 Glucose 112 mg/dL 70-100 Potassium 3.7 mEq/L 3.6-5.1 Protein 6.5 g/dL 6.1-7.9 Sodium 138 mEq/L 136-144 eGFR - 09/29/16 00:57 eGFR >60 NA >60 Troponin - 09/29/16 00:57 Troponin <0.05 ng/mL <0.06 Encounters ACCT No. Visit Date/Time Discharge Status Pt. Type Provider Facility Loc./Unit Complaint [id number] 09/29/2016 00:55:00 Document Registration [id number] 09/19/2016 21:23:00 017 22:40:00 DIS Emergency ROSELIA SHAIKH, IVETH Mcgarry [facility] ED [id number] 09/19/2016 21:17:00 017 23:59:59 CLS [facility] ED [id number] 09/29/2016 00:55:00 017 03:05:00 DIS Emergency Villagran Howard [facility] ED chest and left arm p ain [id number] 09/29/2016 05:18:13 Document Registration
--- OUTSIDE RECORDS SUMMARY | 2020-02-07 19:45 | XMS REPORT ---
Author Author [employer] catshovel [employer] [place] [employer] [facility] Address [address] [address] Care Team Providers Care Monomer Recovery Supervisor Name Role Phone UNASSIGNED, ED PHYSICIAN Unavailable Unavailable IVETH VELOZ Unavailable MILES MURO Unavailable No PCP, Pt States Unavailable IVONE ESCOBAR Unavailable Unavailable IVETH VELOZ MD Unavailable Unavailable Unavailable Unavailable RAMIRO CATHERINE Unavailable Unavailable ANA MARIA ARECHIGA Unavailable Unavailable IVONE ESCOBAR Unavailable Unavailable Unavailable Unavailable Unavailable Unavailable Unavailable Unavailable Unavailable Unavailable Unavailable Unavailable Allergies Normalized Allergy Reported Date of Reaction(s) Care Provider Facility Allergy Type classification allergen Allergy Onset Drug (1 Unclassified No Known no information no name Not A vailable source.) Allergies (79886) DA (3 Unclassified NO KNOWN DRUG 09-19-2016 - no information IVETH Not Available sources.) ALLERGIES MD ROSELIA ([id number]) Medications No Information Problems No Information Procedures The data below is from unstructured sources Procedure List No procedures record ed. Procedure Coding System Code Date Office Visit, Est Pt., Level 3 CPT-4 85588 May 30, 2015 Procedure Coding System Code Date Office Visit, Est Pt., Level 3 CPT-4 14640 May 30, 2015 Immunizations The data below is from unstructured sources Immunizations Patient Unit Number: [id number] Immunizations No immunizations rec orded. Results Test Name Value Interpretation Reference Range Date Time Fa cility (Normalized) (Normalized) (Medline Reference) laboratory on 2020-02-04 Bacteria LM Ql FEW (A) 02-04-2020 PENDING LOC ATION (Urine sed) 03:25-0400 [facility] ([id number]) Bilirubin Ql (U) Negative (no code) 02-04-2020 PENDING L OCATION 03:25-0400 [facility] ([id number]) Casts LM Ql NONE (no code) 02-04-2020 PENDING LOCATI ON (Urine sed) 03:25-0400 [facility] ([id number]) Clarity (U) SL CLOUDY (no code) 02-04-2020 PENDING LOCATI ON 03:25-0400 [facility] ([id number]) Color (U) YELLOW (no code) 02-04-2020 PENDING LOCATI ON 03:25-0400 [facility] ([id number]) Coronavirus Ab Negative (no code) 02-04-2020 PENDING LOC ATION Qn (S) 02:55-0400 [facility] ([id number]) Crystals LM Ql NONE (no code) 02-04-2020 PENDING LOC ATION (Urine sed) 03:25-0400 [facility] ([id number]) Epithelial 25-50 (A) 02-04-2020 PENDING LOCATI ON cells.squamous 03:25-0400 [facility] (27005) LM Ql (Urine sed) Glucose Auto Negative (no code) 02-04-2020 PENDING LOCAT ION test strip Ql 03:25-0400 [facility] (71636) (U) Ketones Auto Negative (no code) 02-04-2020 PENDING LOCAT ION test strip Ql 03:25-0400 [facility] (69173) (U) Leukocyte Negative (no code) 02-04-2020 PENDING LOCATI ON esterase Test 03:25-0400 [facility] ([id number]) strip Ql (U) Mucus Ql (Urine SMALL (A) 02-04-2020 PENDING LO CATION sed) 03:25-0400 [facility] ([id number]) Nitrite Ql (U) Negative (no code) 02-04-2020 PENDING LOC ATION 03:25-0400 [facility] (18448) pH (U) 5.0 [pH] (no code) 4.6 - 8 [pH] 02-04-2020 PENDING L OCATION 03:25-0400 [facility] (06045) Protein Ql (U) Negative (no code) 02-04-2020 PENDING LOC ATION 03:25-0400 [facility] ([id number]) RBC LM.HPF no information (A) 02-04-2020 PENDING LOC ATION (Urine sed) 03:25-0400 [facility] (87473) [#/Area] RBC Ql (U) 3+ (A) 02-04-2020 PENDING LOCATI ON 03:25-0400 [facility] ([id number]) Specific gravity >= (no code) 02-04-2020 PENDING L OCATION (U) [Rel 03:25-0400 [facility] (86535) density] Urinalysis NO (no code) 02-04-2020 PENDING LOCATI ON complete W 03:25-0400 [facility] ([id number]) Reflex Culture panel - Urine Urobilinogen (U) 0.2 mg/dL (no code) 02-04-2020 PENDING L OCATION [Mass/Vol] 03:25-0400 [facility] ([id number]) WBC LM.HPF NONE (no code) 02-04-2020 PENDING LOCATI ON (Urine sed) 03:25-0400 [facility] (87188) [#/Area] not yet categorized on 2019-01-26 Clinical [id number] (N) [facility] information [facility] (15982) COMMENT no information (no code) [facility] (80514) Date of previous LEEP 2001 (N) [facility] biopsy [facility] (62020) Date of previous 2105 (N) [facility] PAP smear [facility] (37161) Last menstrual 01/13/19 (N) [facility] period start [facility] (08356) laboratory on 2019-01-26 Bacteria SEE NOTE (no code) [facility] identified [facility] cx Nom (Genital [facility] specimen) (78983) Accounting Coordinator Cyto no information (N) [facility] stain Nom [facility] (Cvx/Vag) [ID] [facility] (45416) HPV E6+E7 mRNA Not Detected (N) [facility] DEVENDRA+probe Ql [facility] (Cvx) [facility] (55880) Microscopic no information (N) [facility] observation Cyto [facility] stain Nom (Cvx) [facility] (97760) Specimen source Cervix (N) [facility] Cyto stain Nom [facility] (Cvx/Vag) [facility] (00701) Statement of no information (N) [facility] adequacy Cyto [facility] (Cvx/Vag) [facility] [Interp] (20153) laboratory on 2019-01-23 Albumin 4.2 g/dL (N) 3.4 - 5.4 g/dL [facility] [Mass/Vol] [facility] (68757) Albumin/Globulin 1.6 {ratio} (N) 1 - 2.5 {ratio} Comm [facility] [Mass ratio] [facility] (00162) ALP [Catalytic 85 U/L (N) 44 - 147 U/L [facility] activity/Vol] [facility] (55897) ALT [Catalytic 8 U/L (N) 4 - 40 U/L [facility] activity/Vol] [facility] (70439) AST [Catalytic 10 U/L (N) 10 - 34 U/L [facility] activity/Vol] [facility] (29667) Basophils (Bld) 0.07 10*3/uL (N) 0 - 0.3 10*3/uL [facility] [#/Vol] [facility] (29442) Basophils/100 0.8 % (N) 0.5 - 1 % [facility] WBC (Bld) [facility] (20910) Bilirubin 0.2 mg/dL (N) 0.1 - 1.2 mg/dL [facility] [Mass/Vol] [facility] (77682) Calcium 9.5 mg/dL (N) 8.5 - 10.2 mg/dL [facility] [Mass/Vol] [facility] (66317) Chloride 110 mmol/L (N) 95 - 106 mmol/L [facility] [Moles/Vol] [facility] (28586) Cholesterol 194 mg/dL (N) 180 - 200 mg/dL [facility] [Mass/Vol] [facility] (43078) Cholesterol in 32 mg/dL (L) [facility] HDL [Mass/Vol] [facility] (10605) Cholesterol in 0 mg/dL (no code) 0 - 100 mg/dL [facility] LDL [Mass/Vol] [facility] (62620) Cholesterol non 162 mg/dL (H) [facility] HDL [Mass/Vol] [facility] (71748) Cholesterol.tota 6.1 {ratio} (H) [facility] lt l/Cholesterol in [facility] HDL [Mass ratio] [facility] (85361) CO2 [Moles/Vol] 25 mmol/L (N) 23 - 29 mmol/L [facility] (62383) Creatinine 0.85 mg/dL (N) [facility] h [Mass/Vol] [facility] (20139) Eosinophils 0.183 10*3/uL (N) 0.05 - 0.5 [facility]th (Bld) [#/Vol] 10*3/uL [facility] (20955) Eosinophils/100 2.1 % (N) 1 - 4 % [facility] WBC (Bld) [facility] (10406) Erythrocyte 13.1 % (N) 11.6 - 14.6 % [facility] ealth distribution [facility] width (RBC) [facility] [Ratio] (28367) GFR/1.73 sq M 101 (N) 90 - 120 [facility] predicted among mL/min/{1.73_m2} mL/min/{1.73_m2} Center f [facility] blacks MDRD [facility] (S/P/Bld) [Vol (32050) rate/Area] GFR/1.73 sq 87 (N) 90 - 120 [facility] M.predicted MDRD mL/min/{1.73_m2} mL/min/{1.73_m2} [facility] (S/P/Bld) [Vol [facility] rate/Area] (85042) Globulin (S) 2.7 g/dL (N) 2 - 3.5 g/dL [facility] ealt [Mass/Vol] [facility] (77602) Glucose 80 mg/dL (N) 60 - 125 mg/dL [facility] [Mass/Vol] [facility] (88422) Hematocrit (Bld) 42.6 % (N) 36.1 - 50.3 % [facility] [Volume [facility] (13271) Hemoglobin (Bld) 13.7 g/dL (N) 12.1 - 17.2 g/dL [facility] Health [Mass/Vol] [facility] (77033) Lymphocytes 2.619 10*3/uL (N) 0.9 - 2.9 [facility] (Bld) [#/Vol] 10*3/uL [facility] (27271) Lymphocytes/100 30.1 % (N) 20 - 40 % [facility] WBC (Bld) [facility] (89749) MCH (RBC) 30.0 pg (N) 27 - 31 pg [facility] [Entitic mass] [facility] (83565) MCHC (RBC) 32.2 g/dL (N) 32 - 36 g/dL [facility] [Mass/Vol] [facility] (35340) MCV (RBC) 93.4 fL (N) 80 - 100 fL [facility] [Entitic vol] [facility] (70709) Monocytes (Bld) 0.6 10*3/uL (N) 0.3 - 0.9 [facility] [#/Vol] 10*3/uL [facility] (83555) Monocytes/100 6.9 % (N) 2 - 8 % [facility] WBC (Bld) [facility] (64181) Neutrophils 5.229 10*3/uL (N) 1.7 - 7 10*3/uL [facility] (Bld) [#/Vol] [facility] (21686) Neutrophils/100 60.1 % (N) 40 - 60 % [facility] WBC (Bld) [facility] (51435) Platelet mean 11.9 fL (N) 7.2 - 11.7 fL [facility] volume (Bld) [facility] [Entitic vol] [facility] (16839) Platelets (Bld) 261 10*3/uL (N) 150 - 450 [facility] [#/Vol] 10*3/uL [facility] (00040) Potassium 4.1 mmol/L (N) 3.7 - 5.2 mmol/L [facility] Health [Moles/Vol] [facility] (60384) Protein 6.9 g/dL (N) 6.4 - 8.3 g/dL [facility] [Mass/Vol] [facility] (20764) RBC (Bld) 4.56 10*6/uL (N) 4.2 - 6.1 [facility] [#/Vol] 10*6/uL [facility] (20302) Sodium 140 mmol/L (N) 135 - 145 mmol/L [facility] [Moles/Vol] [facility] (79962) Triglyceride 417 mg/dL (H) 0 - 150 mg/dL [facility] [Mass/Vol] [facility] (76987) TSH Qn 1.62 m[IU]/L (N) 0.4 - 4 m[IU]/L [facility] (30759) Urea nitrogen 15 mg/dL (N) 7 - 20 mg/dL [facility] [Mass/Vol] [facility] (99621) Urea NOT APPLICABLE (no code) [facility] h nitrogen/Creatin [facility] [Mass ratio] [facility] (83109) WBC (Bld) 8.7 10*3/uL (N) 3.5 - 10.5 [facility] [#/Vol] 10*3/uL [facility] (79467) Vital Signs The data below is from unstructured sources Vital Response Date/Time Temperature (Fahrenheit) 99.2 degree s F (97.6 - 99.5) 04/18/2016 5:19pm Temperature (Calculated Celsius) 37. 47189 degrees C (36.4 - 37.5) 04/18/2016 5:19pm [...] inches 04/18/2016 4:05pm Height (Calculated Centimeters) 160. 594367 cm 04/18/2016 4:05pm Weight (Pounds) 150 pounds 04/18/2016 4:05pm Weight (Calculated Kilograms) 68.038 856 kilograms 04/18/2016 4:05pm Capillary Refill Capillary Refill Less Than 3 Seconds 04/18/2016 4:05pm Height 5 ft 3 in Weight 150 lb Body Mass Index 26.6 kg/m^2 Vital Response Date/Time Temperature (Fahrenheit) 97.1 degree s F (97.6 - 99.5) 07/25/2015 5:25pm Temperature (Calculated Celsius) 36. 74264 degrees C (36.4 - 37.5) 07/25/2015 5:25pm [...] inches 07/25/2015 3:25pm Height (Calculated Centimeters) 162. 053270 cm 07/25/2015 3:25pm Weight (Pounds) 162 pounds 07/25/2015 3:25pm Weight (Calculated Kilograms) 73.481 965 kilograms 07/25/2015 3:25pm Calculated BMI 27.80 10/2014 3:25pm Interventions No Information Plan of Treatment The data below is from unstructured sources Plan Of Care Visit/Account #[id number] (September 19, 2016 9:23pm - September 19, 2016 10:40pm) Patient Instructions Follow up with primary care in 5-7 days. take Protonix one tablet daily in the morning Take Carafate one tablet one hour before eating food 3 times a day. Take qzav-oco-aivhlfk MiraLAX for constipation. Return to the emergency room if symptoms worsens or has any concern. Discharge Date 04/18/16 5:19pm Disposition 01 HOME, SELF-CARE Condition at Discharge Stable Instructions/Education Provided Phar yngitis (ED) Abscess (ED) Prescriptions See Medication Section Referrals MILES MURO [facility] Physician Additional Instructions/Education Co mplete your antibiotics [...] Prescriptions See Medication Section Referrals MILES MURO [facility] Physician Goals No Information Social History No Information Functional Status The data below is from unstructured sources Functional and Cognitive Status No Functional Status Data Mental Status No Information Encounters Encounter Normalized Encounter Encounter Diagnosis Care Provi alfredo Organization Date Type 02-07-2018 Patient encounter no information no name no or ganization name NEGATED Patient encounter no information no name no or ganization name 01-14-2018 01-11-2018 Patient encounter no information no name no or ganization name 01-04-2018 Patient encounter no information no name no or ganization name 12-31-2017 Patient encounter no information no name no or ganization name NEGATED Patient encounter no information no name no or ganization name 01-09-2020 Patient encounter no information IVONE ESCOBAR (n o [facility] procedure phone) [facility] (no phone) 04-12-2019 Patient encounter no information no name no or ganization name procedure 04-12-2019 Patient encounter no information no name no or ganization name procedure 01-26-2019 Patient encounter no information no name no or ganization name procedure 01-23-2019 Patient encounter no information no name no or ganization name procedure 01-23-2019 Patient encounter no information no name no or ganization name procedure 01-23-2019 Patient encounter no information no name no or ganization name procedure Medical Equipment No Information Payers No Information Discharge Instructions Discharge Instructions Visit/Account #[id number] (September 19, 2016 9:23pm - September 19, 2016 10:40pm) DISCHARGE INSTRUCTIO EULA Physician Documentation Advance Directives Directive Response Recor ded Date/Time Advance Directives No 3:25pm Directive Response Recor ded Date/Time Advance Directives No 3:25pm Resuscitation Status Full Code 07/25/15 3:25pm Summary Purpose eClinicalWorks Submission Additional Source Comments This clinical document has been generated using [employer] software that has been certified by the Office of the National Coordinator for Health Information Technology (ONC 15.99.04.3023.Diam.31.00.0.157335) and the National Committee for Crossing Supervisor (NCQA, as an eMeasure certified technology). FOR [...] BASED ON T HE PRIMARY CLINICAL RECORDS. [employer] provides no warranty or guara ntee of the accuracy or completeness of information in this document.The followi ng information is based on time limited clinical information
== END 2020-02-07 16:30 | disposition home or self-care (01) ==
LOC: EDUNIT# 15:11 → ER 15:12
DX: J32.1 Chronic frontal sinusitis (principal); J45.909 Unspecified asthma, uncomplicated; Z87.820 Personal history of traumatic brain injury; Z88.5 Allergy status to narcotic agent; Z82.49 Family history of ischemic heart disease and other diseases of the circulatory system
CPT/HCPCS: 36415; 80053; 84145; 85025; 86141

== ENCOUNTER 2021-02-04 13:46 | Emergency (ER) | payer SELFPAY ==
[~2021-02-04] VITALS: Ht 162 cm; Wt 83.0 kg
--- NOTE | 2021-02-04 14:27 | ED GU-Female ---
General Chief Complaint: Female Reproductive Stated Complaint: VAGINAL BURNING/CRAMPING Nursing Triage Note: ARRIVED VIA AMB TO ROOM 10 WITH COMPLAINTS OF VAGINAL ITCHING/BURNING AFTER BEING DONE WITH HER PERIOD APPX 1.5 WEEKS AGO. ALSO COMPLAINS OF OCCASIONAL OVARIAN PAIN. Nursing Sepsis Screen: No Definite Risk Source: patient Exam Limitations: no limitations History of Present Illness Date Seen by Provider: Feb 04, 2021 Time Seen by Provider: 14:25 Initial Comments Patient is a 40-year-old female who presents to the emergency department today with a chief complaint of vaginal itching and burning. Patient states she started her. About a week and a half ago and then after her period ended started developing the symptoms. Patient complains of "ovarian pain" down low with her. But this is improved. Patient denies any nausea vomiting diarrhea. No fevers or chills. She is not concerned about a sexually transmitted infection, she states that she is tenriism user of condoms. No other complaints of illness or injury. All other review of systems reviewed and negative except as stated above. Timing/Duration: getting worse Severity/Quality: burning, other (Itching) Location: vaginal Associated Symptoms: denies symptoms Allergies and Home Medications Allergies Coded Allergies: codeine (Verified Allergy, Unknown, 07/25/15) Home Medications Albuterol Sulfate 8.5 Gm Hfa.aer.ad, 1-2 PUFF IH PRN, (Reported) Ciprofloxacin HCl 500 Mg Tablet, 500 MG PO BID Prescribed by: CARI MCFARLAND on 05/06/19 1158 Doxycycline Hyclate 100 Mg Tablet, 100 MG PO BID Prescribed by: MAR PAK on 04/18/16 1659 Doxycycline Hyclate 100 Mg Tablet, 100 MG PO BID Prescribed by: ONIEL HILLIARD on 02/07/20 1612 Fluconazole 200 Mg Tablet, 200 MG PO ONCE repeat in 1 week Prescribed by: YAO COLE on 02/04/21 1549 Hyoscyamine Sulfate 0.125 Mg Tab.subl, 1-2 TAB SL Q4H Prescribed by: CARI MCFARLAND on 05/06/19 115 Lactobacillus Acidophilus 1 Each Capsule, 2 EACH PO QID Prescribed by: CARI MCFARLAND on 05/06/19 1158 Metronidazole 500 Mg Tablet, 2,000 MG PO ONCE Prescribed by: RICHARD LOPEZ on 11/14/198 Ondansetron 4 Mg Tab.rapdis, 4 MG PO Q4H Prescribed by: CARI MCFARLAND on 05/06/19 1158 Pantoprazole Sodium 40 Mg GranjerryktLudmiladr, 40 MG PO DAILY Prescribed by: RICHARD LOPEZ on 07/25/15 1733 Sulfamethoxazole/Trimethoprim 1 Each Tablet, 1 EACH PO BID Prescribed by: RICHADR LOPEZ on 02/07/18 2236 Sulfamethoxazole/Trimethoprim 1 Each Tablet, 1 EACH PO BID Prescribed by: RICHARD LOPEZ on 02/10/18 1024 Sulfamethoxazole/Trimethoprim 1 Each Tablet, 1 EACH PO BID Prescribed by: RICHARD LOPEZ on 02/07/18 1452 Sulfamethoxazole/Trimethoprim 1 Each Tablet, 1 EACH PO BID Prescribed by: YAO COLE on 02/04/21 1549 Patient Home Medication List Home Medication List Reviewed: Yes Review of Systems Review of Systems Constitutional: see HPI Respiratory: no symptoms reported Cardiovascular: no symptoms reported Gastrointestinal: abdominal pain Genitourinary: burning, other (Vaginal itching) : No Musculoskeletal: no symptoms reported Skin: other (Vaginal itching) Past Obkqnoa-Oabgqx-Zwiirn Hx Patient Social History Alcohol Use: Denies Use Drug of Choice: POT Smoking Status: Current Everyday Smoker Type Used: Electronic/Vapor 2nd Hand Smoke Exposure: Yes Recent Infectious Disease Expo: No Recent Hopitalizations: No Past Medical History Surgeries: Yes (LEEP) Respiratory: Yes (tobaccoism) Asthma Cardiac: Yes High Cholesterol Neurological: Yes Concussion Reproductive Disorders: Yes (CERVICAL DYSPLASIA--S/P LEEP) Genitourinary: No Gastrointestinal: Yes (GASTRITIS; H.PYLORI) Musculoskeletal: Yes Scoliosis Endocrine: No HEENT: No Cancer: No Psychosocial: Yes Anxiety, PTSD, Bipolar Integumentary: No Blood Disorders: No Family Medical History Heart Disease, Cancer, Diabetes Physical Exam Vital Signs Vital Signs - First Documented 02/04/21 13:50 Temp 36.2 Pulse 94 Resp 16 B/P (MAP) 119/92 (101) Pulse Ox 94 O2 Delivery Room Air Capillary Refill : Less Than 3 Seconds Height, Weight, BMI Height: 5'4.00" Weight: 174lbs. 0oz. 78.655207cc; 31.00 BMI Method:Stated General Appearance: WD/WN, no apparent distress Neck: full range of motion Cardiovascular: regular rate, rhythm Respiratory: no respiratory distress, no accessory muscle use Gastrointestinal: non tender, soft Extremities: normal inspection Neurologic/Psychiatric: alert, normal mood/affect, oriented x 3 Progress/Results/Core Measures Suspected Sepsis Recent Fever Within 48 Hours: No Infection Criteria Present: None New/Unexplained Altered Menta: No Sepsis Screen: No Definite Risk SIRS Temperature: Pulse: 94 Respiratory Rate: 16 Blood Pressure 119 /92 Mean: 101 Results/Orders Lab Results Micro Results My Orders Medications Given in ED Vital Signs/I&O Capillary Refill : Less Than 3 Seconds Blood Pressure Mean: 101 Departure Impression Primary Impression: Candidiasis of genitalia in female Additional Impression: Urinary tract infection Qualified Codes: N30.00 - Acute cystitis without hematuria Disposition: HOME, SELF-CARE Condition: Stable Departure-Patient Inst. Referrals: [facility] (PCP/Family) Primary Care Physician Patient Instructions: Urinary Tract Infection, Adult (DC), Vulvovaginal Yeast Infection Add. Discharge Instructions: Drink lots of fluids to stay well-hydrated. You can take camd-rby-kcaegiv Azo to help with bladder spasms and discomfort with urination. Take the Bactrim, 1 twice a day for the next 3 days for your urine. Also Diflucan 1 today and then 1 in 1 week for vaginal yeast infection. Use whdo-lfr-fypphnl Monistat cream to help reduce itching. Follow-up with your primary care physician. Return to the emergency room for any new, concerning or emergent complaints. Scripts Fluconazole (Diflucan) 200 Mg Tablet 200 MG PO ONCE, #2 TAB repeat in 1 week Prov: YAO COLE MD 02/04/21 Sulfamethoxazole/Trimethoprim (Bactrim Ds Tablet) 1 Each Tablet 1 EACH PO BID, #6 TAB Prov: YAO COLE MD 02/04/21 YAO COLE MD Feb 04, 2021 14:27
[2021-02-04 14:36] LABS: BILIRUBIN,URINE NEGATIVE (NEGATIVE); CLARITY,URINE CLOUDY; COLOR,URINE YELLOW; GLUCOSE, URINE (UA) NEGATIVE (NEGATIVE); KETONES,URINE NEGATIVE (NEGATIVE); LEUKOCYTE ESTERASE ,URINE 1+ (NEGATIVE); NITRITE,URINE NEGATIVE (NEGATIVE); PH,URINE 5.5 (5-9); PROTEIN,URINE TRACE (NEGATIVE)
[2021-02-04 15:05] LABS: BACTERIA,URINE LARGE /HPF; SQUAMOUS EPITHELIAL CELL,UR 25-50 /HPF; WBC,URINE 50-100 /HPF
[2021-02-04] MEDS ORDERED: cefTRIAXone 250 MG/2.5 ML ML IM ONE (15:15)
[2021-02-04] MEDS ORDERED: AZITHROMYCIN 250 MG TAB (ZITHROMAX) PO ONE (15:15)
[2021-02-04] MEDS ORDERED: LIDOCAINE 1% INJ 20 ML 20 ML VIAL INJ ONE (15:15)
[2021-02-04] MEDS ORDERED: SULF1TAB35 PO (15:49)
[2021-02-04] MEDS ORDERED: FLUC200T PO (15:49)
[2021-02-04 15:53] VITALS: BP 119/92
[2021-02-05] MEDS ORDERED: AZITHROMYCIN 250 MG TAB (ZITHROMAX) PO SCH (09:00)
== END 2021-02-04 15:53 | disposition home or self-care (01) ==
LOC: EDUNIT# 13:46 → ER 13:47
DX: B37.9 Candidiasis, unspecified (principal); N39.0 Urinary tract infection, site not specified; J45.909 Unspecified asthma, uncomplicated; F17.290 Nicotine dependence, other tobacco product, uncomplicated; Z87.820 Personal history of traumatic brain injury
CPT/HCPCS: 36415; 81000; 84703; 87077; 87088; 87186; 87210; 87491; 87591; 99284

== ENCOUNTER 2021-06-24 22:04 | Emergency (ER) | payer SELFPAY ==
[~2021-06-24 22:04] MED LIST changes: +FLUC200T PO; -SULF1TAB35 PO; +SULF1TAB38 PO
[2021-06-24] MEDS ORDERED: fentaNYL INJ 100 MCG/2 ML AMP IVP ONE (22:30)
[2021-06-24 22:42] LABS: BILIRUBIN,URINE NEGATIVE (NEGATIVE); CLARITY,URINE SL CLOUDY; COLOR,URINE YELLOW; GLUCOSE, URINE (UA) NEGATIVE (NEGATIVE); KETONES,URINE NEGATIVE (NEGATIVE); LEUKOCYTE ESTERASE ,URINE NEGATIVE (NEGATIVE); NITRITE,URINE NEGATIVE (NEGATIVE); PH,URINE 5.5 (5-9); PROTEIN,URINE TRACE (NEGATIVE)
[2021-06-24 22:47] LABS: BASOPHILS # (AUTO) 0.1 10^3/uL (0.0-0.1); BASOPHILS % (AUTO) 1 % (0-10); EOSINOPHILS # (AUTO) 0.3 10^3/uL (0.0-0.3); EOSINOPHILS % (AUTO) 2 % (0-10); HEMATOCRIT 42 % (35-52); LYMPHOCYTES # (AUTO) 3.6 10^3/uL (1.0-4.0); LYMPHOCYTES % (AUTO) 33 % (12-44); MEAN CORPUSCULAR HEMOGLOBIN 30 pg (25-34); MEAN CORPUSCULAR HGB CONC 33 g/dL (32-36); MEAN CORPUSCULAR VOLUME 89 fL (80-99); MEAN PLATELET VOLUME 10.4 fL (9.0-12.2); MONOCYTES # (AUTO) 0.9 10^3/uL (0.0-1.0); MONOCYTES % (AUTO) 8 % (0-12); NEUTROPHILS # (AUTO) 6.2 10^3/uL (1.8-7.8); NEUTROPHILS % (AUTO) 56 % (42-75); PLATELET COUNT 353 10^3/uL (130-400)
[2021-06-24 22:53] LABS: BACTERIA,URINE MODERATE /HPF; RED BLOOD CELL CASTS,URINE RARE /LPF; SQUAMOUS EPITHELIAL CELL,UR 0-2 /HPF; WBC,URINE 0-2 /HPF
[2021-06-24 23:06] LABS: ALBUMIN 4.3 GM/DL (3.2-4.5); BILIRUBIN,TOTAL 0.4 MG/DL (0.1-1.0); CALCIUM 9.2 MG/DL (8.5-10.1); CREATININE SERUM 0.96 MG/DL (0.60-1.30); POTASSIUM 3.9 MMOL/L (3.6-5.0); TOTAL PROTEIN 7.6 GM/DL (6.4-8.2)
[2021-06-24] MEDS ORDERED: LACTATED RINGERS 1,000 ML IV ONE (23:30)
[2021-06-25] MEDS ORDERED: HOLD METFORMIN - RECEIVED CONTRAST 20 ML VIAL IV SCH (00:15)
[2021-06-25] MEDS ORDERED: IOHEXOL 350 MG/ML 100 ML (OMNIPAQUE 350) VIAL IV ONE (00:15)
[2021-06-25] MEDS ORDERED: NS 100 ML (IVPB) BAG IV ONE (00:15)
--- NOTE | 2021-06-25 00:52 | ED Abdominal Pain ---
General Chief Complaint: Abdominal/GI Problems Stated Complaint: LOW ABD PAIN Source of Information: Patient Exam Limitations: No Limitations History of Present Illness Date Seen by Provider: Jun 24, 2021 Time Seen by Provider: 22:20 Initial Comments This 41-year-old young lady presents to the emergency room with complaints of bilateral pelvic or lower abdominal pain for about 2 weeks. Pain is constant. She feels bloated and nauseated. She has lost her appetite. She denies any urinary changes. She has not had intercourse for 4 to 5 months and denies any dyspareunia or vaginal discharge. LMP was at the end of April. She has never been and presumes she cannot become . She denies fever. She has history of cervical dysplasia resulting in LEEP in 2001. She had a Pap smear about 3 years ago which she reports was normal to the best of her knowledge. She reports extensive family history of female cancers. She has not taken any medications for her pain. Allergies and Home Medications Allergies Coded Allergies: codeine (Verified Allergy, Intermediate, Hives, 06/24/21) Hives and throat tightening Patient Home Medication List Home Medication List Reviewed: Yes Albuterol Sulfate (Proair Hfa) 8.5 Gm Hfa.aer.ad, 1-2 PUFF IH PRN, (Reported) Entered as Reported by: MATEO ALVARADO on 04/18/16 1610 Ciprofloxacin HCl (Cipro) 500 Mg Tablet, 500 MG PO BID Prescribed by: CARI MCFARLAND on 05/06/19 1158 Doxycycline Hyclate (Doxycycline Hyclate) 100 Mg Tablet, 100 MG PO BID Prescribed by: MAR PAK on 04/18/16 1659 Doxycycline Hyclate (Doxycycline Hyclate) 100 Mg Tablet, 100 MG PO BID Prescribed by: ONIEL HILLIARD on 02/07/20 1612 Fluconazole (Diflucan) 200 Mg Tablet, 200 MG PO ONCE Prescribed by: YAO COLE on 02/04/21 1549 Hyoscyamine Sulfate (Levsin-Sl) 0.125 Mg Tab.subl, 1-2 TAB SL Q4H Prescribed by: CARI MCFARLAND on 05/06/19 1158 Lactobacillus Acidophilus (Acidophilus) 1 Each Capsule, 2 EACH PO QID Prescribed by: CARI MCFARLAND on 05/06/19 1158 Metronidazole (Metronidazole) 500 Mg Tablet, 2,000 MG PO ONCE Prescribed by: RICHARD LOPEZ on 11/14/19 194 Ondansetron (Ondansetron Odt) 4 Mg Tab.rapdis, 4 MG PO Q4H Prescribed by: CARI MCFARLAND on 05/06/19 1158 Pantoprazole Sodium (Protonix) 40 Mg Granpkt.dr, 40 MG PO DAILY Prescribed by: RICHARD LOPEZ on 07/25/15 1733 Sulfamethoxazole/Trimethoprim (Bactrim Ds Tablet) 1 Each Tablet, 1 EACH PO BID Prescribed by: RICHARD LOPEZ on 02/07/18 2236 Sulfamethoxazole/Trimethoprim (Bactrim Ds Tablet) 1 Each Tablet, 1 EACH PO BID Prescribed by: RICHARD LOPEZ on 02/10/18 1024 Sulfamethoxazole/Trimethoprim (Bactrim Ds Tablet) 1 Each Tablet, 1 EACH PO BID Prescribed by: RICHARD LOPEZ on 02/07/18 1452 Sulfamethoxazole/Trimethoprim (Bactrim Ds Tablet) 1 Each Tablet, 1 EACH PO BID Prescribed by: YAO COLE on 02/04/21 1549 Review of Systems Review of Systems Constitutional: no symptoms reported EENTM: No Symptoms Reported Respiratory: No Symptoms Reported Cardiovascular: No Symptoms Reported Gastrointestinal: See HPI Genitourinary: See HPI Musculoskeletal: no symptoms reported Skin: no symptoms reported Psychiatric/Neurological: No Symptoms Reported Endocrine: No Symptoms Reported Past Pouypsp-Lliuji-Lzmavn Hx Patient Social History Tobacco Use?: Yes Tobacco type used: Cigarettes Smoking Status: Current Everyday Smoker Substance use?: Yes Substance type: Marijuana Alcohol Use?: No Pt feels they are or have been: No Past Medical History Surgeries: Yes (LEEP) Respiratory: Yes (tobaccoism) Asthma Cardiac: Yes Heart Murmur, High Cholesterol Neurological: Yes Concussion Reproductive Disorders: Yes (CERVICAL DYSPLASIA--S/P LEEP, HPV) Genitourinary: No Gastrointestinal: Yes (GASTRITIS; H.PYLORI) Musculoskeletal: Yes Scoliosis Endocrine: No HEENT: No Cancer: No Psychosocial: Yes Anxiety, PTSD, Bipolar Integumentary: No Blood Disorders: No Family Medical History Heart Disease, Cancer (ovarian - mother), Diabetes Physical Exam Vital Signs Vital Signs - First Documented 06/24/21 22:19 Temp 36.0 Pulse 76 Resp 16 B/P (MAP) 130/79 (96) Pulse Ox 96 O2 Delivery Room Air Capillary Refill : Height/Weight/BMI Height: 5'4.00" Weight: 174lbs. 0oz. 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, no motor/sensory deficits, alert, normal mood/affect, oriented x 3 Skin: normal color, warm/dry Progress/Results/Core Measures Results/Orders Lab Results Laboratory Tests Test 06/24/21 22:35 06/24/21 22:38 Range/Units Urine Color YELLOW Urine Clarity SL CLOUDY Urine pH 5.5 5-9 Urine Specific [place] >=1.030 1.016-1.022 Urine Protein TRACE H NEGATIVE Urine Glucose (UA) NEGATIVE NEGATIVE Urine Ketones NEGATIVE NEGATIVE Urine Nitrite NEGATIVE NEGATIVE Urine Bilirubin NEGATIVE NEGATIVE Urine Urobilinogen 0.2 < = 1.0 MG/DL Urine Leukocyte Esterase NEGATIVE NEGATIVE Urine RBC (Auto) 3+ H NEGATIVE Urine RBC 5-10 H /HPF Urine WBC 0-2 /HPF Urine Squamous Epithelial Cells 0-2 /HPF Urine Crystals NONE /LPF Urine Bacteria MODERATE H /HPF Urine Casts PRESENT /LPF Urine Red Blood Cell Casts RARE H /LPF Urine Mucus SMALL H /LPF Urine Culture Indicated YES White Blood Count 11.0 4.3-11.0 10^3/uL Red Blood Count 4.73 3.80-5.11 10^6/uL Hemoglobin 14.0 11.5-16.0 g/dL Hematocrit 42 35-52 % Mean Corpuscular Volume 89 80-99 fL Mean Corpuscular Hemoglobin 30 25-34 pg Mean Corpuscular Hemoglobin Concent 33 32-36 g/dL Red Cell Distribution Width 13.3 10.0-14.5 % Platelet Count 353 130-400 10^3/uL Mean Platelet Volume 10.4 9.0-12.2 fL Immature Granulocyte % (Auto) 1 % Neutrophils (%) (Auto) 56 42-75 % Lymphocytes (%) (Auto) 33 12-44 % Monocytes (%) (Auto) 8 0-12 % Eosinophils (%) (Auto) 2 0-10 % Basophils (%) (Auto) 1 0-10 % Neutrophils # (Auto) 6.2 1.8-7.8 10^3/uL Lymphocytes # (Auto) 3.6 1.0-4.0 10^3/uL Monocytes # (Auto) 0.9 0.0-1.0 10^3/uL Eosinophils # (Auto) 0.3 0.0-0.3 10^3/uL Basophils # (Auto) 0.1 0.0-0.1 10^3/uL Immature Granulocyte # (Auto) 0.1 0.0-0.1 10^3/uL Sodium Level 139 135-145 MMOL/L Potassium Level 3.9 3.6-5.0 MMOL/L Chloride Level 108 H 98-107 MMOL/L Carbon Dioxide Level 21 21-32 MMOL/L Anion Gap 10 5-14 MMOL/L Blood Urea Nitrogen 14 7-18 MG/DL Creatinine 0.96 0.60-1.30 MG/DL Estimat Glomerular Filtration Rate 64 BUN/Creatinine Ratio 15 Glucose Level 99 70-105 MG/DL Calcium Level 9.2 8.5-10.1 MG/DL Corrected Calcium 9.0 8.5-10.1 MG/DL Total Bilirubin 0.4 0.1-1.0 MG/DL Aspartate Amino Transf (AST/SGOT) 10 5-34 U/L Alanine Aminotransferase (ALT/SGPT) 9 0-55 U/L Alkaline Phosphatase 83 40-136 U/L C-Reactive Protein High Sensitivity 0.77 H 0.00-0.50 MG/DL Total Protein 7.6 6.4-8.2 GM/DL Albumin 4.3 3.2-4.5 GM/DL Lipase 40 8-78 U/L Serum Test, Qualitative NEGATIVE NEGATIVE Micro Results Microbiology 06/24/21 Urine Culture - Final, Complete NO GROWTH My Orders Orders - MAR RAE MD Ua Culture If Indicated (06/24/21 22:19) Cbc With Automated Diff (06/24/21 22:30) Comprehensive Metabolic Panel (06/24/21 22:30) Hs C Reactive Protein (06/24/21 22:30) Hcg,Qualitative Serum (06/24/21 22:30) Lipase (06/24/21 22:30) Fentanyl Inj (Sublimaze Injection) (06/24/21 22:30) Urine Culture (06/24/21 22:35) Ed Iv/Invasive Line Start (06/24/21 23:21) Lactated Ringers (Lr 1000 Ml Iv Solution (06/24/21 23:30) Ct Abdomen/Pelvis W (06/24/21 23:42) Iohexol Injection (Omnipaque 350 Mg/Ml 1 (06/25/21 00:15) Received Contrast (Hold Metformin- Contr (06/25/21 00:15) Ns (Ivpb) (Sodium Chloride 0.9% Ivpb Bag (06/25/21 00:15) Ketorolac Injection (Toradol Injection) (06/25/21 01:00) Medications Given in ED Vital Signs/I&O 06/24/21 06/25/21 22:19 01:04 Temp 36.0 36.0 Pulse 76 55 Resp 16 16 B/P (MAP) 130/79 (96) 124/83 Pulse Ox 96 98 O2 Delivery Room Air Room Air Progress Progress Note : Progress Note Patient's pain was treated with fentanyl and later with Toradol. She was hydrated with IV fluids. Work-up was relatively unremarkable. She was offered further evaluation with CT scanning which she elected to pursue after discussion of risks and benefits. CT did not reveal any significant acute abnormalities. Patient was offered a pelvic exam but would like to defer to her outpatient appointment later this week for Pap smear. She will also discuss obtaining an ultrasound with her provider at that time. Diagnostic Imaging Diagonstic Imaging: CT Plain Films/CT/US/NM/MRI: abdomen, pelvis Comments NAME: SHELLEY UMANA MED REC#: [id number] PT STATUS: DEP ER : [id number] PHYSICIAN: MAR RAE MD ADMIT DATE: 06/24/21/ER Signed Date of Exam:06/24/21 CT ABDOMEN/PELVIS W EXAMINATION: CT abdomen and pelvis with intravenous contrast. TECHNIQUE: Multiple contiguous axial images were obtained through the abdomen and pelvis after the uneventful administration of intravenous contrast. All CT scans use one or more of the following dose optimizing techniques: automated exposure control, MA and/or KvP adjustment based on patient size and exam type or iterative reconstruction. HISTORY: Pelvic pain. History of cervical dysplasia. COMPARISON: 11/14/2019. FINDINGS: The heart is unremarkable. The included lung bases are clear. The liver, spleen, pancreas, adrenal glands, and kidneys have a normal appearance. There is no pathologically enlarged mesenteric or retroperitoneal adenopathy. The bowel loops are nondilated. The appendix is visualized in the right lower quadrant and has a normal appearance. There is no free fluid or free air. No acute osseous abnormalities. Ureters and bladder are grossly normal. Stable appearance of the uterus and ovaries. There is no free air, loculated collection, or adenopathy in the pelvis. IMPRESSION: 1. No acute abnormalities in the abdomen and pelvis. No bowel obstruction, free fluid, or free air. Normal appendix. Agree with overnight report. Dictated by: Dictated on workstation # [id number] Dict: 06/25/21 0638 Trans: 06/25/21 0651 [facility] [id number] Interpreted by: ISELA VARGAS DO Electronically signed by: ISELA VARGAS DO 06/25/21 0651 Departure Impression Primary Impression: Pelvic pain Additional Impression: History of cervical dysplasia Disposition: 01 HOME, SELF-CARE Condition: Improved Departure-Patient Inst. Decision time for Depature: 00:47 Referrals: IVONE ESCOBAR MD (PCP/Family) Primary Care Physician Patient Instructions: Pelvic Pain Add. Discharge Instructions: For treatment of your pain you may take either Mobic as prescribed or ibuprofen up to 600 mg every 6 hours as needed. Do not take both Mobic and ibuprofen concurrently. Add Tylenol (acetaminophen) up to 1000 mg every 6 hours as needed to your [place] or ibuprofen for additional pain control. Keep your appointment on Wednesday for your Pap smear. Please also discussed the following with your provider prior to that appointment or at that appointment. 1. Adding STI and wet prep studies to your Pap smear. 2. Obtaining a pelvic US for further evaluation of your pain. 3. Possible referral to a senior mechanical project engineer for evaluation for endometriosis if no other cause of your pain is discovered. 4. Review urine culture collected in the ER. Return to the ER if you have worsening symptoms. All discharge instructions reviewed with patient and/or family. Voiced un derstanding. Copy Copies To 1: IVONE ESCOBAR MD, JOSHUA T MD Jun 25, 2021 00:51
[2021-06-25] MEDS ORDERED: KETOROLAC 30 MG/ML VIAL IVP ONE (01:00)
[2021-06-25 01:04] VITALS: BP 124/83
--- NOTE | 2021-06-25 06:49 | Diagnostic Imaging Report ---
EXAMINATION: CT abdomen and pelvis with intravenous contrast. TECHNIQUE: Multiple contiguous axial images were obtained through the abdomen and pelvis after the uneventful administration of intravenous contrast. All CT scans use one or more of the following dose optimizing techniques: automated exposure control, MA and/or KvP adjustment based on patient size and exam type or iterative reconstruction. HISTORY: Pelvic pain. History of cervical dysplasia. COMPARISON: 11/14/2019. FINDINGS: The heart is unremarkable. The included lung bases are clear. The liver, spleen, pancreas, adrenal glands, and kidneys have a normal appearance. There is no pathologically enlarged mesenteric or retroperitoneal adenopathy. The bowel loops are nondilated. The appendix is visualized in the right lower quadrant and has a normal appearance. There is no free fluid or free air. No acute osseous abnormalities. Ureters and bladder are grossly normal. Stable appearance of the uterus and ovaries. There is no free air, loculated collection, or adenopathy in the pelvis. IMPRESSION: 1. No acute abnormalities in the abdomen and pelvis. No bowel obstruction, free fluid, or free air. Normal appendix. Agree with overnight report. Dictated by: Dictated on workstation # [id number]
== END 2021-06-25 01:04 | disposition home or self-care (01) ==
LOC: EDUNIT# 22:04 → ER 22:06
DX: R10.2 Pelvic and perineal pain (principal); J45.909 Unspecified asthma, uncomplicated; F17.210 Nicotine dependence, cigarettes, uncomplicated; Z87.820 Personal history of traumatic brain injury
CPT/HCPCS: 36415; 74177; 80053; 81000; 83690; 84703; 85025; 86141; 87088; 96361; 96374; 96375

== ENCOUNTER 2022-09-07 10:34 | Emergency (ER) | payer OTHER ==
[~2022-09-07] VITALS: Ht 162 cm; Wt 72.5 kg
[~2022-09-07 10:34] MED LIST changes: +ALBU8.5H6 IH; -RT-ALBUINH IH
--- NOTE | 2022-09-07 10:55 | ED GU-Female ---
General Chief Complaint: Abdominal/GI Problems Stated Complaint: ABD PAIN | VAGINAL BLEEDING Nursing Triage Note: PT CO OF ABD PAIN 06/01, STARTED YESTERDAY W N/V. STARTED HAVING HEAVY BLEEDING SINCE 2300 LAST PM. STATES HAD FEVER LAST PM. STATES HAD REGULAR PERIOD APPROX 08/16/22. PT DOES NOT USE CONTROL. Source: patient Exam Limitations: no limitations History of Present Illness Date Seen by Provider: Sep 07, 2022 Time Seen by Provider: 10:37 Initial Comments 42-year-old female with past medical history of gastritis coming in due to lower abdominal pain and vaginal bleeding. She states her LMP was just over 2 weeks ago. Does not use any form of control. She states she typically has a very regular menstrual period, and has never bled in between periods before. She says she is saturated 5 pads in roughly the past 12 hours. She had some nausea and nonbloody nonbilious vomiting yesterday which since has stopped. She also endorses having a fever yesterday. Denies any cough, chest pain, shortness of breath, weakness, numbness, dysuria, rash, unusual vaginal discharge, or any other concerns. Denies any prior history of easy bruising, easy bleeding, or any family history of bleeding disorders. Allergies and Home Medications Allergies Coded Allergies: codeine (Verified Allergy, Intermediate, Hives, 06/24/21) Hives and throat tightening Patient Home Medication List Home Medication List Reviewed: Yes Albuterol Sulfate (Ventolin Hfa) 8.5 Gm Hfa.aer.ad, 1-2 PUFF IH PRN, (Reported) Entered as Reported by: MATEO ALVARADO on 04/18/16 1610 Ciprofloxacin HCl (Cipro) 500 Mg Tablet, 500 MG PO BID Prescribed by: CARI MCFARLAND on 05/06/19 1158 Doxycycline Hyclate (Doxycycline Hyclate) 100 Mg Tablet, 100 MG PO BID Prescribed by: MAR PAK on 04/18/16 1659 Doxycycline Hyclate (Doxycycline Hyclate) 100 Mg Tablet, 100 MG PO BID Prescribed by: ONIEL HILLIARD on 02/07/20 1612 Fluconazole (Diflucan) 200 Mg Tablet, 200 MG PO ONCE Prescribed by: YAO COLE on 02/04/21 1549 Hyoscyamine Sulfate (Levsin-Sl) 0.125 Mg Tab.subl, 1-2 TAB SL Q4H Prescribed by: CARI MCFARLAND on 05/06/19 1158 Lactobacillus Acidophilus (Acidophilus) 1 Each Capsule, 2 EACH PO QID Prescribed by: CARI MCFARLAND on 05/06/19 1158 Metronidazole (Metronidazole) 500 Mg Tablet, 2,000 MG PO ONCE Prescribed by: RICHARD LOPEZ on 11/14/19 194 Ondansetron (Ondansetron Odt) 4 Mg Tab.rapdis, 4 MG PO Q4H Prescribed by: CARI MCFARLAND on 05/06/19 1158 Ondansetron (Ondansetron Odt) 4 Mg Tab.rapdis, 4 MG SL Q6H PRN for NAUSEA/VOMITING Prescribed by: SEVEN PRESCOTT on 09/07/22 1144 Pantoprazole Sodium (Protonix) 40 Mg Granpkt.dr, 40 MG PO DAILY Prescribed by: RICHARD LOPEZ on 07/25/15 1733 Sulfamethoxazole/Trimethoprim (Bactrim Ds Tablet) 1 Each Tablet, 1 EACH PO BID Prescribed by: RICHARD LOPEZ on 02/07/18 2236 Sulfamethoxazole/Trimethoprim (Bactrim Ds Tablet) 1 Each Tablet, 1 EACH PO BID Prescribed by: RICHARD LOPEZ on 02/10/18 1024 Sulfamethoxazole/Trimethoprim (Bactrim Ds Tablet) 1 Each Tablet, 1 EACH PO BID Prescribed by: RICHARD LOPEZ on 02/07/18 1452 Sulfamethoxazole/Trimethoprim (Bactrim Ds Tablet) 1 Each Tablet, 1 EACH PO BID Prescribed by: AYO COLE on 02/04/21 1549 Review of Systems Review of Systems Constitutional: No fever EENTM: no symptoms reported Respiratory: no symptoms reported Cardiovascular: no symptoms reported Gastrointestinal: see HPI Genitourinary: see HPI Musculoskeletal: no symptoms reported Skin: no symptoms reported Psychiatric/Neurological: No Symptoms Reported Endocrine: No Symptoms Reported Hematologic/Lymphatic: No Symptoms Reported All Other Systemes Reviewed Negative Unless Noted: Yes Past Lpzvfav-Tvjwap-Yrwsxr Hx Patient Social History Tobacco Use?: Yes Tobacco type used: Cigarettes Substance use?: Yes Substance type: Marijuana Alcohol Use?: No Past Medical History Surgeries: Yes (LEEP) Respiratory: Yes (tobaccoism) Asthma Cardiac: Yes Heart Murmur, High Cholesterol Neurological: Yes Concussion Reproductive Disorders: Yes (CERVICAL DYSPLASIA--S/P LEEP, HPV) Genitourinary: No Gastrointestinal: Yes (GASTRITIS; H.PYLORI) Musculoskeletal: Yes Scoliosis Endocrine: No HEENT: No Cancer: No Psychosocial: Yes Anxiety, PTSD, Bipolar Integumentary: No Blood Disorders: No Family Medical History Heart Disease, Cancer, Diabetes Physical Exam Vital Signs Vital Signs - First Documented 09/07/22 10:40 Temp 36.0 Pulse 66 Resp 18 B/P (MAP) 123/97 (106) Pulse Ox 97 Capillary Refill : Less Than 3 Seconds Height, Weight, BMI Height: 5'4.00" Weight: 174lbs. 0oz. 78.931338dg; 27.00 BMI Method:Stated General Appearance: WD/WN, no apparent distress HEENT: PERRL/EOMI, normal ENT inspection, pharynx normal Neck: non-tender, full range of motion, supple, normal inspection Cardiovascular: regular rate, rhythm, no edema, no murmur Respiratory: chest non-tender, lungs clear, normal breath sounds, no resp iratory distress, no accessory muscle use Gastrointestinal: normal bowel sounds, soft; No distended, No guarding, No rebound; tenderness Back: normal inspection, no CVA tenderness, no vertebral tenderness Extremities: normal range of motion, non-tender, normal inspection, no pedal edema, no calf tenderness, normal capillary refill Neurologic/Psychiatric: no motor/sensory deficits, alert, normal mood/affect Skin: normal color, warm/dry Lymphatic: no adenopathy Progress/Results/Core Measures Suspected Sepsis SIRS Temperature: Pulse: 66 Respiratory Rate: 18 Laboratory Tests 09/07/22 10:50: White Blood Count 11.8H Blood Pressure 123 /97 Mean: 106 Laboratory Tests 09/07/22 10:50: Creatinine 0.84, Platelet Count 343, Total Bilirubin 0.5 09/07/22 10:55: INR Comment 0.9 Results/Orders Lab Results Laboratory Tests Test 09/07/22 10:50 09/07/22 10:55 09/07/22 11:00 Range/Units White Blood Count 11.8 H 4.3-11.0 10^3/uL Red Blood Count 4.76 3.80-5.11 10^6/uL Hemoglobin 14.6 11.5-16.0 g/dL Hematocrit 43 35-52 % Mean Corpuscular Volume 90 80-99 fL Mean Corpuscular Hemoglobin 31 25-34 pg Mean Corpuscular Hemoglobin Concent 34 32-36 g/dL Red Cell Distribution Width 12.6 10.0-14.5 % Platelet Count 343 130-400 10^3/uL Mean Platelet Volume 10.2 9.0-12.2 fL Immature Granulocyte % (Auto) 0 % Neutrophils (%) (Auto) 76 H 42-75 % Lymphocytes (%) (Auto) 17 12-44 % Monocytes (%) (Auto) 5 0-12 % Eosinophils (%) (Auto) 1 0-10 % Basophils (%) (Auto) 1 0-10 % Neutrophils # (Auto) 9.0 H 1.8-7.8 10^3/uL Lymphocytes # (Auto) 2.0 1.0-4.0 10^3/uL Monocytes # (Auto) 0.6 0.0-1.0 10^3/uL Eosinophils # (Auto) 0.1 0.0-0.3 10^3/uL Basophils # (Auto) 0.1 0.0-0.1 10^3/uL Immature Granulocyte # (Auto) 0.1 0.0-0.1 10^3/uL Sodium Level 140 135-145 MMOL/L Potassium Level 3.6 3.6-5.0 MMOL/L Chloride Level 108 H 98-107 MMOL/L Carbon Dioxide Level 24 21-32 MMOL/L Anion Gap 8 5-14 MMOL/L Blood Urea Nitrogen 12 7-18 MG/DL Creatinine 0.84 0.60-1.30 MG/DL Estimat Glomerular Filtration Rate 89 BUN/Creatinine Ratio 14 Glucose Level 106 H 70-105 MG/DL Calcium Level 9.3 8.5-10.1 MG/DL Corrected Calcium 9.1 8.5-10.1 MG/DL Total Bilirubin 0.5 0.1-1.0 MG/DL Aspartate Amino Transf (AST/SGOT) 12 5-34 U/L Alanine Aminotransferase (ALT/SGPT) 15 0-55 U/L Alkaline Phosphatase 73 40-136 U/L Total Protein 7.4 6.4-8.2 GM/DL Albumin 4.3 3.2-4.5 GM/DL Lipase 22 8-78 U/L Prothrombin Time 12.9 12.2-14.7 SEC INR Comment 0.9 0.8-1.4 Activated Partial Thromboplast Time 31 24-35 SEC Influenza Type A (RT-PCR) Not Detected Not Detecte Influenza Type B (RT-PCR) Not Detected Not Detecte SARS-CoV-2 RNA (RT-PCR) Not Detected Not Detecte Urine Color RED H Urine Clarity SL CLOUDY Urine pH 5.0 5-9 Urine Specific [place] >=1.030 1.016-1.022 Urine Protein 2+ H NEGATIVE Urine Glucose (UA) NEGATIVE NEGATIVE Urine Ketones NEGATIVE NEGATIVE Urine Nitrite NEGATIVE NEGATIVE Urine Bilirubin NEGATIVE NEGATIVE Urine Urobilinogen 1.0 < = 1.0 MG/DL Urine Leukocyte Esterase TRACE H NEGATIVE Urine RBC (Auto) 3+ H NEGATIVE Urine RBC TNTC H /HPF Urine WBC 0-2 /HPF Urine Squamous Epithelial Cells 0-2 /HPF Urine Crystals NONE /LPF Urine Bacteria TRACE /HPF Urine Casts NONE /LPF Urine Mucus NEGATIVE /LPF Urine Culture Indicated NO My Orders Orders - SEVEN PRESCOTT MD Cbc With Automated Diff (09/07/22 10:49) Comprehensive Metabolic Panel (09/07/22 10:49) Lipase (09/07/22 10:49) Ua Culture If Indicated (09/07/22 10:49) Influenza A And B By Pcr (09/07/22 10:49) Ct Abdomen/Pelvis W (09/07/22 10:49) Ed Iv/Invasive Line Start (09/07/22 10:49) Urine Bedside (09/07/22 10:49) Covid 19 Inhouse Test (09/07/22 10:49) Ketorolac Injection (Toradol Injection) (09/07/22 11:00) Ondansetron Injection (Zofran Injectio (09/07/22 11:00) Iohexol Injection (Omnipaque 350 Mg/Ml 1 (09/07/22 11:00) Received Contrast (Hold Metformin- Contr (09/07/22 11:00) Ns (Ivpb) (Sodium Chloride 0.9% Ivpb Bag (09/07/22 11:00) Sodium Chloride Flush (Catheter Flush Sy (09/07/22 11:00) Protime With Inr (09/07/22 10:58) Partial Thromboplastin Time (09/07/22 10:58) Medications Given in ED Current Medications Medications Dose Ordered Sig/Mark Route Start Time Stop Time Status Last Admin Dose Admin Iohexol 100 ml ONCE ONCE IV 09/07/22 11:00 09/07/22 11:01 DC 09/07/22 11:21 80 ML Ketorolac Tromethamine 15 mg ONCE ONCE IVP 09/07/22 11:00 09/07/22 11:01 DC 09/07/22 10:58 15 MG Ondansetron HCl 4 mg ONCE ONCE IVP 09/07/22 11:00 09/07/22 11:01 DC 09/07/22 10:58 4 MG Sodium Chloride 10 ml NEEDED PRN IV 09/07/22 11:00 09/07/22 11:21 10 ML Sodium Chloride 100 ml ONCE ONCE IV 09/07/22 11:00 09/07/22 11:01 DC 09/07/22 11:21 80 ML Vital Signs/I&O 09/07/22 10:40 Temp 36.0 Pulse 66 Resp 18 B/P (MAP) 123/97 (106) Pulse Ox 97 Capillary Refill : Less Than 3 Seconds Blood Pressure Mean: 106 Progress Note : Progress Note 42-year-old female with above history coming in due to lower abdominal pain and vaginal bleeding. ABCs were intact and vitals were stable on presentation. Physical exam with lower abdominal tenderness but no signs of peritonitis. I offered the patient a pelvic exam, but she declines at this time. I described to her that this could be useful for me to quantify how much bleeding there is as well as I would be able to see if there is any obvious mass. Of note, the patient was in the ER for over an hour and never did need to change her pad. She states she would rather have her box hinge and lock attacher do a pelvic on her. Differential includes abnormal uterine bleeding from mass/malignancy versus coagulopathy versus endometrial as versus some other etiology. Lower abdominal tenderness is less likely to be something such as appendicitis or diverticulitis in the setting of having abdominal cramping with vaginal bleeding. We will add on a flu and COVID test due to the fever yesterday with vomiting. An IV was placed and basic labs were obtained as well as urine studies. test is negative, hemoglobin normal, platelet count normal, normal creatinine and BUN, normal coagulation studies, negative COVID and flu test. CT abdomen pelvis with no acute abnormalities. The amount of bleeding is not excessive clinically, and the patient is hemodynamically stable. I will have her follow-up with COMPUTER AIDE as an outpatient. She was given IV Toradol here and Zofran for pain control and nausea which did improve her symptoms. I believe she is stable for discharge with outpatient follow-up. She was sent home with strict return precautions. Diagnostic Imaging Diagonstic Imaging: CT (abd/pelvis) Comments NAME: SHELLEY UMANA [facility] REC#: [id number] PT STATUS: REG ER : 1980 PHYSICIAN: SEVEN PRESCOTT MD ADMIT DATE: 09/07/22/ER Draft Date of Exam:09/07/22 CT ABDOMEN/PELVIS W PROCEDURE: CT abdomen and pelvis with contrast. TECHNIQUE: Multiple contiguous axial images were obtained through the abdomen and pelvis after administration of intravenous contrast. Auto Exposure Controls were utilized during the CT exam to meet ALARA standards for radiation dose reduction. All CT scans use one or more of the following dose optimizing techniques: automated exposure control, MA and/or KvP adjustment based on patient size and exam type or iterative reconstruction. INDICATION: Severe lower abdominal pain COMPARISON: 06/24/2021 FINDINGS: There is dependent atelectasis in the lung bases. The heart is normal in size. There is no pericardial effusion. The liver demonstrates no focal lesions. The spleen appears normal. The pancreas is normal. The adrenal glands appear normal. The kidneys demonstrate no enhancing lesions and no hydronephrosis. The bowel loops are nondistended without obstruction. The appendix is normal. No significant free fluid is seen in the abdomen or pelvis. No free air is seen. The ovaries appear mildly prominent, but appear stable compared to multiple prior examinations. There is no lymphadenopathy. The aorta is normal in caliber. No acute osseous abnormality is seen. IMPRESSION: 1. No acute abnormalities seen in the abdomen or pelvis. Dictated on workstation # [id number] Dict: 09/07/22 1129 Trans: 09/07/22 1134 CV [id number] Interpreted by: NABIL SHUKLA MD Electronically signed by: Departure Impression Primary Impression: Metrorrhagia Disposition: HOME, SELF-CARE Condition: Stable Departure-Patient Inst. Decision time for Depature: 11:41 Referrals: KE DONOHUE DAVID F MD (PCP/Family) Primary Care Physician Patient Instructions: Bleeding Between Periods Add. Discharge Instructions: Your labs and imaging were reassuring, with no evidence of anemia, mass, cancer, etc. It is not uncommon for women to develop vaginal bleeding in between periods, but I do want you to follow-up with an COMPUTER AIDE, and if you do not have one, you can follow-up with Dr. Donohue whose number is in this paperwork. If symptoms persist, he may want to start you on a control which can help regulate bleeding. I recommend taking ibuprofen 600 mg every 6 hours as needed for pain. You can add Tylenol to this if you continue to have pain. Nausea medicines were sent to your pharmacy. If you fully saturate a maxi pad with blood every hour for several hours, I would want you to be evaluated again by a doctor sooner. Scripts Ondansetron (Ondansetron Odt) 4 Mg Tab.rapdis 4 MG SL Q6H PRN for NAUSEA/VOMITING for 5 Days, #20 TAB Prov: SEVEN PRESCOTT MD 09/07/22 Work/School Note: Work Release Form Date Seen in the Emergency Department: Sep 07, 2022 Return to Work: Sep 08, 2022 Restrictions: No Restrictions SEVEN PRESCOTT MD Sep 07, 2022 10:55
[2022-09-07 10:59] LABS: BASOPHILS # (AUTO) 0.1 10^3/uL (0.0-0.1); BASOPHILS % (AUTO) 1 % (0-10); EOSINOPHILS # (AUTO) 0.1 10^3/uL (0.0-0.3); EOSINOPHILS % (AUTO) 1 % (0-10); HEMATOCRIT 43 % (35-52); HEMOGLOBIN 14.6 g/dL (11.5-16.0); LYMPHOCYTES % (AUTO) 17 % (12-44); MEAN CORPUSCULAR HEMOGLOBIN 31 pg (25-34); MEAN CORPUSCULAR HGB CONC 34 g/dL (32-36); MEAN CORPUSCULAR VOLUME 90 fL (80-99); MEAN PLATELET VOLUME 10.2 fL (9.0-12.2); MONOCYTES # (AUTO) 0.6 10^3/uL (0.0-1.0); MONOCYTES % (AUTO) 5 % (0-12); NEUTROPHILS % (AUTO) 76 % (42-75); PLATELET COUNT 343 10^3/uL (130-400); WHITE BLOOD COUNT 11.8 10^3/uL (4.3-11.0)
[2022-09-07] MEDS ORDERED: IOHEXOL 350 MG/ML 100 ML (OMNIPAQUE 350) VIAL IV ONE (11:00)
[2022-09-07] MEDS ORDERED: HOLD METFORMIN - RECEIVED CONTRAST 20 ML VIAL IV SCH (11:00)
[2022-09-07] MEDS ORDERED: CATHETER FLUSH 10 ML SYR IV PRN (11:00)
[2022-09-07] MEDS ORDERED: KETOROLAC 30 MG/ML VIAL IVP ONE (11:00)
[2022-09-07] MEDS ORDERED: ONDANSETRON 4 MG/2 ML (SDV) Z0FRAN IVP ONE (11:00)
[2022-09-07] MEDS ORDERED: NS 100 ML (IVPB) BAG IV ONE (11:00)
[2022-09-07 11:09] LABS: BILIRUBIN,URINE NEGATIVE (NEGATIVE); CLARITY,URINE SL CLOUDY; COLOR,URINE RED; GLUCOSE, URINE (UA) NEGATIVE (NEGATIVE); KETONES,URINE NEGATIVE (NEGATIVE); LEUKOCYTE ESTERASE ,URINE TRACE (NEGATIVE); NITRITE,URINE NEGATIVE (NEGATIVE); PROTEIN,URINE 2+ (NEGATIVE)
[2022-09-07 11:16] LABS: INR 0.9 (0.8-1.4); PROTHROMBIN TIME PATIENT 12.9 SEC (12.2-14.7)
[2022-09-07 11:20] LABS: ALBUMIN 4.3 GM/DL (3.2-4.5); POTASSIUM 3.6 MMOL/L (3.6-5.0)
[2022-09-07 11:21] LABS: CALCIUM 9.3 MG/DL (8.5-10.1)
[2022-09-07 11:22] LABS: TOTAL PROTEIN 7.4 GM/DL (6.4-8.2)
[2022-09-07 11:24] LABS: BILIRUBIN,TOTAL 0.5 MG/DL (0.1-1.0)
[2022-09-07 11:26] LABS: CREATININE SERUM 0.84 MG/DL (0.60-1.30)
--- NOTE | 2022-09-07 11:34 | Diagnostic Imaging Report ---
PROCEDURE: CT abdomen and pelvis with contrast. TECHNIQUE: Multiple contiguous axial images were obtained through the abdomen and pelvis after administration of intravenous contrast. Auto Exposure Controls were utilized during the CT exam to meet ALARA standards for radiation dose reduction. All CT scans use one or more of the following dose optimizing techniques: automated exposure control, MA and/or KvP adjustment based on patient size and exam type or iterative reconstruction. INDICATION: Severe lower abdominal pain COMPARISON: 06/24/2021 FINDINGS: There is dependent atelectasis in the lung bases. The heart is normal in size. There is no pericardial effusion. The liver demonstrates no focal lesions. The spleen appears normal. The pancreas is normal. The adrenal glands appear normal. The kidneys demonstrate no enhancing lesions and no hydronephrosis. The bowel loops are nondistended without obstruction. The appendix is normal. No significant free fluid is seen in the abdomen or pelvis. No free air is seen. The ovaries appear mildly prominent, but appear stable compared to multiple prior examinations. There is no lymphadenopathy. The aorta is normal in caliber. No acute osseous abnormality is seen. IMPRESSION: 1. No acute abnormalities seen in the abdomen or pelvis. Dictated by: Dictated on workstation # [id number]
[2022-09-07 11:39] LABS: BACTERIA,URINE TRACE /HPF; RBC,URINE TNTC /HPF; SQUAMOUS EPITHELIAL CELL,UR 0-2 /HPF; WBC,URINE 0-2 /HPF
[2022-09-07] MEDS ORDERED: ONDA4TAB11 SL (11:44)
[2022-09-07 11:52] VITALS: BP 123/97
== END 2022-09-07 11:52 | disposition home or self-care (01) ==
LOC: EDUNIT# 10:34 → ER 10:38
DX: N92.1 Excessive and frequent menstruation with irregular cycle (principal); F17.210 Nicotine dependence, cigarettes, uncomplicated; Z20.822 Contact with and (suspected) exposure to COVID-19; Z32.02 Encounter for pregnancy test, result negative
CPT/HCPCS: 36415; 74177; 80053; 81000; 83690; 84703; 85025; 85610; 85730; 87636

== ENCOUNTER → 2022-12-29 | Outpatient (CLI) | payer OTHER ==
[~2022-12-29] MED LIST changes: +ONDA4TAB11 SL
--- NOTE | 2022-12-29 15:29 | Diagnostic Imaging Report ---
PROCEDURE: US non-OB pelvis comp/trans. INDICATION: Pelvic pain, abnormal uterine bleeding. TECHNIQUE: Multiple real-time grayscale sonographic images were obtained of the pelvis transabdominally and endovaginally. CORRELATION STUDY: None. FINDINGS: UTERUS: 7.7 x 3.6 x 4.7 cm. Uterus is retroverted. Otherwise, generally unremarkable given limitations owing to positioning. ENDOMETRIUM: 1.2 cm. The endometrium is of normal thickness. Question mild prominence of the cervix. RIGHT OVARY: 5.3 x 2.7 x 3.2 cm. LEFT OVARY: 4.3 x 2.7 x 3.2 cm. Cyst in the right adnexa, 1.8 x 1.5 x 1 cm. Both ovaries have somewhat small, peripheral distribution of multiple follicles. Ovarian blood flow is present. No significant free pelvic fluid. IMPRESSION: 1. Retroverted uterus, limiting assessment. There is questionable prominence of the cervix. Direct visualization recommended. 2. Relatively simple-appearing right adnexal cyst. Small peripheral distribution of the follicles, nonspecific but can be seen with polycystic ovarian syndrome. Dictated by: Dictated on workstation # [id number]
== END ==
LOC: RAD 12:21
PROVIDERS: ATTEND Nurse Practitioner Women's Health
DX: N85.4 Malposition of uterus (principal); E28.2 Polycystic ovarian syndrome
CPT/HCPCS: 76830; 76856